=== PATIENT | male | born 1965 | race Caucasian/White ===

== ENCOUNTER 2016-10-03 01:16 | Inpatient (IN) | payer OTHER ==
[~2016-10-03] VITALS: Ht 180.3 cm; Wt 160.1 kg
[2016-10-03] VITALS (9 sets, daily range): BP systolic 141–214; BP diastolic 81–124
[2016-10-03] MEDS ORDERED: SILD50TA PO (04:45)
[2016-10-03] MEDS ORDERED: LORA10TA3 PO (04:45)
[2016-10-03] MEDS ORDERED: OXYM15MI4 NS (04:45)
[2016-10-03] MEDS ORDERED: BUDE10.22 IH (04:45)
[2016-10-03] MEDS ORDERED: VENL75TA PO (04:45)
[2016-10-03] MEDS ORDERED: NICO1PAT21 TD (04:45)
[2016-10-03] MEDS ORDERED: BUSP10TA PO (04:45)
[2016-10-03] MEDS ORDERED: ALLO100T PO (04:45)
[2016-10-03] MEDS ORDERED: NITR0.4T22 SL (04:45)
[2016-10-03] MEDS ORDERED: IPRA4AER IH (04:45)
[2016-10-03] MEDS ORDERED: LISI30TA4 PO (04:45)
[2016-10-03] MEDS ORDERED: ASPI-482 PO (04:45)
[2016-10-03] MEDS ORDERED: FLUT16SP NS (04:45)
[2016-10-03] MEDS ORDERED: CETI10TA16 PO (04:45)
[2016-10-03] MEDS ORDERED: METF500T4 PO (04:45)
[2016-10-03] MEDS ORDERED: OMEP40CA5 PO (04:45)
[2016-10-03 05:14] LABS: BASO # 0.1 x10^3/uL (0.0-0.2); BASO % 1 % (0-3); EOS % 3 % (0-3); HEMATOCRIT 48.8 % (39.0-53.0); HEMOGLOBIN 16.2 g/dL (13.0-17.5); LYMPH # 2.5 x10^3/uL (1.0-4.8); LYMPH % 23 % (24-48); MEAN CORPUSCULAR HEMOGLOBIN 31 pg (25-35); MEAN CORPUSCULAR HGB CONC 33 g/dL (31-37); MEAN CORPUSCULAR VOLUME 93 fL (79-100); MONO % 8 % (0-9); NEUT % 65 % (31-73); PLATELET COUNT 251 x10^3/uL (140-400); RED BLOOD COUNT 5.24 x10^6/uL (4.30-5.70); RED CELL DISTRIBUTION WIDTH 14.6 % (11.5-14.5); WHITE BLOOD COUNT 10.9 x10^3/uL (4.0-11.0)
[2016-10-03 05:33] LABS: ALBUMIN/GLOBULIN RATIO 0.8 (1.0-1.7); CALCIUM 9.4 mg/dL (8.5-10.1); CREATININE 1.1 mg/dL (0.7-1.3); MAGNESIUM 1.8 mg/dL (1.8-2.4); TOTAL BILIRUBIN 0.2 mg/dL (0.2-1.0); TOTAL PROTEIN 6.7 g/dL (6.4-8.2)
[2016-10-03 05:35] LABS: CHOLESTEROL/HDL RATIO 5.5
[2016-10-03] MEDS ORDERED: ANTI-COAG MONITOR BY PHARMACY. MC PRN (06:00)
[2016-10-03] MEDS: HEPARIN 25,000UTS/500ML PREMIX 500 ML IV PRN ×2 (06:09→22:15)
[2016-10-03] MEDS: HEPARIN for IV BOLUS 10,000 UNIT/10 ML VIAL. IV PRN ×3 (06:09→22:14)
--- NOTE | 2016-10-03 07:26 | EKG ---
[facility] [address] [place] [address] Test Date: 2016-10-03 Test Time: 07:17:12 Pat Name: STEVO GOODE Department: Room: 208 1 Gender: M [employer]er: : 1965 Requested By: MARIANNE VERONICA Order Number: [id number] Reading MD: Measurements Intervals [place] Rate: 82 P: 62 NM: 158 QRS: 70 QRSD: 100 T: 19 QT: 376 QTc: 442 Interpretive Statements SINUS RHYTHM ATRIAL PREMATURE COMPLEX(ES) OTHERWISE NORMAL ECG RI6.01 No previous ECG available for comparison
--- NOTE | 2016-10-03 07:53 | EKG ---
[facility] [address] [place] [address] Test Date: 2016-10-03 Test Time: 07:25:58 Pat Name: STEVO GOODE Department: Room: 208 1 Gender: M Hospital Manager: : [id number] Requested By: MARIANNE VERONICA Order Number: [id number] Reading MD: Measurements Intervals [place] Rate: 151 P: MS: QRS: 94 QRSD: 100 T: -56 QT: 322 QTc: 511 Interpretive Statements SUPRAVENTRICULAR TACHYCARDIA RIGHTWARD AXIS T ABNORMALITY IN ANTEROSEPTAL LEADS INFERIOR LEADS ABNORMAL ECG RI6.01 No previous ECG available for comparison
[2016-10-03] MEDS ORDERED: hydrALAZINE 20 MG/ML VIAL. IVP PRN (08:30)
[2016-10-03] MEDS: LISINOPRIL 40 MG TABLET. PO SCH (08:36)
[2016-10-03] MEDS ORDERED: ACETAMINOPHEN 325 MG TABLET. PO PRN (09:15)
[2016-10-03] MEDS ORDERED: MORPHINE SULFATE 2 MG/ML DISP.SYRIN. IV PRN (09:15)
[2016-10-03] MEDS ORDERED: ONDANSETRON PF 4 MG/2 ML VIAL. IV PRN (09:15)
[2016-10-03] MEDS ORDERED: DOCUSATE SODIUM 100 MG CAPSULE. PO PRN (09:15)
--- NOTE | 2016-10-03 09:44 | PDOC2 ---
CARDIAC CONSULT DATE OF CONSULT Date of Consult DATE: 10/03/16 TIME: 09:14 REASON FOR CONSULT Reason for Consult: SVT, elevation troponin REFERRING PHYSICIAN Referring Physician: Jesse SOURCE Source: Chart review, Patient HISTORY OF PRESENT ILLNESS HISTORY OF PRESENT ILLNESS This is a pleasant 51 yo male admitted for complains of dizziness. Pt was at the [facility] going up the escalator when he felt dizzy, SOA, diaphoretic, and was also having jaw pain which he also had the day before. The next thing he remembers was waking up while he was at the lower floor, feeling disoriented. Verbalized broken parts of the escalator. No sensation of palpitations at that time and no obvious traumatic injury. He was with his girlfriend at that time. No medical help or EMS attended. There was no bowel or stress incontinence or any symptoms of seizures. Positive for blurred vision and tinnitus but no CALLE, unilateral weakness, dysarthria, or facial droop noted prior to his fall. He then proceeded to home driven home by his girlfriend. He still was not feeling good at home and his girlfriend finally check his BP and SBP was in the 80s and told him that he will go to the hospital. He has been having some sensation of indigestion lately and could not really tell of any chest pain. Positive for VELA. He does use CPAP for KIRSTIE. He has HTN, HLP which he takes medications for . Positive for DM2. He had a C 09/2015 which showed luminal irregularities to his mid RCA otherwise normal coronaries. His EF at that time was normal as well as his wll motion. Denies any prior VTE, CVA, arrhythmia. PAST MEDICAL HISTORY Cardiovascular: HTN, Hyperlipidemia Pulmonary: COPD, Other (KIRSTIE with CPAP) CENTRAL NERVOUS SYSTEM: Periperal neuropathy GI: GERD Heme/Onc: No pertinent hx Hepatobiliary: No pertinent hx Psych: Anxiety Musculoskeletal: Osteoarthritis, Other (rencent right 5th finger injury from mechanical fall) Rheumatologic: Gout Infectious disease: No pertinent hx ENT: Allergic Rhinitis Renal/: No pertinent hx Endocrine: Diabetes (2) Dermatology: No pertinent hx PAST SURGICAL HISTORY Past Surgical History: Hernia Repair (umbilical ), Other ([facility] 09/2015) FAMILY HISTORY Family History: Coronary Artery Disease SOCIAL HISTORY Smoke: 2 packs per day (>30 yrs) ALCOHOL: occassional Drugs: Marijuana Lives: Friends (girlfriend) CURRENT MEDICATIONS CURRENT MEDICATIONS Current Medications Medications (Trade) Dose Ordered Sig/Darian Route PRN Reason Start Time Stop Time Status Last Admin Dose Admin Heparin Sodium/ Dextrose 500 ml @ 0 mls/hr CONT PRN IV SEE I/O RECORD 10/03/16 06:00 10/03/16 06:09 Heparin Sodium (Porcine) (Heparin Sodium) 4,100 unit PRN Q6HRS PRN IV FOR UFH LEVEL LESS THAN 0.2 10/03/16 06:00 10/03/16 06:09 Info (Anti-Coagulation Monitoring By Pharmacy) 1 each PRN DAILY PRN MC SEE COMMENTS 10/03/16 06:00 10/03/16 05:54 Hydralazine HCl (Apresoline) 10 mg PRN Q4HRS PRN IVP ELEVATED BP, SEE COMMENTS 10/03/16 08:30 10/03/16 08:37 Lisinopril (Prinivil) 40 mg DAILY PO 10/03/16 09:00 10/03/16 08:36 ALLERGIES ALLERGIES: Coded Allergies: Iodinated Contrast- Oral and IV Dye (Verified Allergy, Severe, 10/03/16) gabapentin (Verified Allergy, Intermediate, Swelling, 10/03/16) ROS Review of System 14 point ROS evaluated with pertinent positives noted per HPI PHYSICAL EXAM General: Alert, Oriented X3, Cooperative, No acute distress HEENT: Atraumatic, Mucous membr. moist/pink Lungs: Other (diminished bases) Heart: Regular rate (SR), Normal S1, Normal S2, Other (2/6 systolic murmur to LLS border) Abdomen: Soft, No tenderness, Other (truncal obesity) Extremities: No cyanosis, No edema Skin: No breakdown, No significant lesion Neuro: Normal speech, Sensation intact Psych/Mental Status: Mental status NL, Mood NL MUSCULOSKELETAL: Osteoarthritic changes both hands VITALS VITALS Vital Signs Date Time Temp Pulse Resp B/P (MAP) Pulse Ox O2 Delivery O2 Flow Rate FiO2 10/03/16 08:37 82 234/144 10/03/16 07:00 97.9 19 94 Nasal Cannula 3.0 97.9 LABS Lab: Laboratory Tests Test 10/03/16 05:00 10/03/16 09:03 White Blood Count 10.9 x10^3/uL (4.0-11.0) Red Blood Count 5.24 x10^6/uL (4.30-5.70) Hemoglobin 16.2 g/dL (13.0-17.5) Hematocrit 48.8 % (39.0-53.0) Mean Corpuscular Volume 93 fL (79-100) Mean Corpuscular Hemoglobin 31 pg (25-35) Mean Corpuscular Hemoglobin Concent 33 g/dL (31-37) Red Cell Distribution Width 14.6 % (11.5-14.5) Platelet Count 251 x10^3/uL (140-400) Neutrophils (%) (Auto) 65 % (31-73) Lymphocytes (%) (Auto) 23 % (24-48) Monocytes (%) (Auto) 8 % (0-9) Eosinophils (%) (Auto) 3 % (0-3) Basophils (%) (Auto) 1 % (0-3) Neutrophils # (Auto) 7.1 x10^3uL (1.8-7.7) Lymphocytes # (Auto) 2.5 x10^3/uL (1.0-4.8) Monocytes # (Auto) 0.9 x10^3/uL (0.0-1.1) Eosinophils # (Auto) 0.3 x10^3/uL (0.0-0.7) Basophils # (Auto) 0.1 x10^3/uL (0.0-0.2) Sodium Level 141 mmol/L (136-145) Potassium Level 4.0 mmol/L (3.5-5.1) Chloride Level 103 mmol/L (98-107) Carbon Dioxide Level 32 mmol/L (21-32) Anion Gap 6 (6-14) Blood Urea Nitrogen 13 mg/dL (8-26) Creatinine 1.1 mg/dL (0.7-1.3) Estimated GFR (Cockcroft-Gault) 70.0 BUN/Creatinine Ratio 12 (6-20) Glucose Level 119 mg/dL (70-99) Calcium Level 9.4 mg/dL (8.5-10.1) Magnesium Level 1.8 mg/dL (1.8-2.4) Total Bilirubin 0.2 mg/dL (0.2-1.0) Aspartate Amino Transf (AST/SGOT) 23 U/L (15-37) Alanine Aminotransferase (ALT/SGPT) 30 U/L (16-63) Alkaline Phosphatase 89 U/L (46-116) Troponin I Quantitative 2.284 ng/mL (0.000-0.055) Total Protein 6.7 g/dL (6.4-8.2) Albumin 3.0 g/dL (3.4-5.0) Albumin/Globulin Ratio 0.8 (1.0-1.7) Triglycerides Level 146 mg/dL (0-150) Cholesterol Level 148 mg/dL (0-200) LDL Cholesterol, Calculated 92 mg/dL (0-100) VLDL Cholesterol, Calculated 29 mg/dL (0-40) Non-HDL Cholesterol Calculated 121 mg/dL (0-129) HDL Cholesterol 27 mg/dL (40-60) Cholesterol/HDL Ratio 5.5 Glucose (Fingerstick) 121 mg/dL (70-99) ASSESSMENT/PLAN ASSESSMENT/PLAN 1. NSTEMI: typical features. Suspecting plaque rupture with associated arrhythmia. Currently no CP. 2. Accelerated HTN 3. Arrhythmia: SVT, junctional, SB 4. Syncope with fall: related to above 5. DM2/HLP 6. COPD/KIRSTIE 7. Morbid obesity: BMI 50 8. Heavy tobaccoism 9. IV contrast allergy: angioedema Recommendations 1. TTE 2. Contrast allergy prep, C tomorrow AM 3. Obtain home CPAP, smoking cessation 4. Heparin drip, ASA 5. Increase lisinopril, and start norvasc. Hydralazine IV PRN 6. No QT prolonging meds or AV nate blocking agent at this time. 7. TSH, lipid panel, CK 8. Check orthostatic readings 9. CT head Problems: EDWIN COWAN GRAIN OILSEED OR PASTURE GROWER Oct 03, 2016 09:44
[2016-10-03] MEDS: ALPRAZolam 0.25 MG TABLET PO PRN (09:51)
[2016-10-03] MEDS: amLODIPine BESYLATE 10 MG TABLET PO SCH (09:52)
[2016-10-03] MEDS ORDERED: SULFUR HEXAFLUORIDE MICROSPHR 25 MG VIAL. IVP ONE ×2 (10:27→11:00)
[2016-10-03] MEDS ORDERED: NITROGLYCERIN SUBLINGUAL 0.4 MG BOTTLE OF 25. SL PRN (10:45)
[2016-10-03] MEDS ORDERED: NON FORMULARY ITEM (Ipratropium/Albuterol Sulfate (Combivent Respimat Inhal) 2 INH) IH PRN (10:45)
[2016-10-03] MEDS ORDERED: NON FORMULARY ITEM (Loratadine 10 MG) PO PRN (10:45)
[2016-10-03] MEDS: PANTOPRAZOLE 40 MG TABLET.DR. PO SCH (11:51)
--- NOTE | 2016-10-03 11:51 | PDOC2 ---
CONSULT Date of Consult Date of Consult DATE: 10/03/16 TIME: 11:45 Reason for Consult Reason for Consult: COPD/KIRSTIE Referring Physician Referring Physician: Dr Ayala Identification/Chief Complaint Chief Complaint syncopy Problems: History of Present Illness Reason for Visit: Pt presented to [place] with syncopy, low BP, recent fall as well. 35 yrs of tobacco use. Has KIRSTIE, not using BIPAP recently due to not well fitted mask. Increase EDS. sleepy at times today. Past Medical History Cardiovascular: CHF, Syncope Pulmonary: COPD GI: No pertinent hx Heme/Onc: No pertinent hx Hepatobiliary: No pertinent hx Psych: No pertinent hx Rheumatologic: No pertinent hx Infectious disease: No pertinent hx Past Surgical History Past Surgical History: No pertinent history Family History Family History non contributry to lungs Social History # pack years (35) Current Medications Current Medications Current Medications Heparin Sodium/ Dextrose 500 ml @ 0 mls/hr CONT PRN IV SEE I/O RECORD Last administered on 10/03/16 06:09; Start 10/03/16 at 06:00 Heparin Sodium (Porcine) (Heparin Sodium) 4,100 unit PRN Q6HRS PRN IV FOR UFH LEVEL LESS THAN 0.2 Last administered on 10/03/16 06:09; Start 10/03/16 at 06: 00 Info (Anti-Coagulation Monitoring By Pharmacy) 1 each PRN DAILY PRN MC SEE COMMENTS Last administered on 10/03/16 05:54; Start 10/03/16 at 06:00 Hydralazine HCl (Apresoline) 10 mg PRN Q4HRS PRN IVP ELEVATED BP, SEE COMMENTS Last administered on 10/03/16 08:37; Start 10/03/16 at 08:30; Stop 10/03/16 at 09:18; Status DC Lisinopril (Prinivil) 40 mg DAILY PO Last administered on 10/03/16 08:36; Start 10/03/16 at 09:00 Acetaminophen (Tylenol) 650 mg PRN Q6HRS PRN PO FEVER; Start 10/03/16 at 09:15 Ondansetron HCl (Zofran) 4 mg PRN Q6HRS PRN IV NAUSEA/VOMITING; Start 10/03/16 at 09:15 Morphine Sulfate 2 mg PRN Q2HR PRN IV PAIN; Start 10/03/16 at 09:15 Tramadol HCl (Ultram) 50 mg PRN Q6HRS PRN PO PAIN; Start 10/03/16 at 09:15 Hydralazine HCl (Apresoline) 10 mg PRN Q4HRS PRN IVP ELEVATED BP, SEE COMMENTS ; Start 10/03/16 at 09:15 Docusate Sodium (Colace) 100 mg PRN DAILY PRN PO CONSTIPATION; Start 10/03/16 at 09:15 Alprazolam (Xanax) 0.25 mg PRN DAILY PRN PO ANXIETY / AGITATION Last administered on 10/03/16 09:51; Start 10/03/16 at 09:15 Amlodipine Besylate (Norvasc) 10 mg DAILY PO Last administered on 10/03/16 09: 52; Start 10/03/16 at 10:00 Sulfur Hexafluoride Microspheres (Lumason) 25 mg STK-MED ONCE IVP ; Start at 10:27; Stop 10/03/16 at 10:28; Status DC Allopurinol (Zyloprim) 100 mg DAILY PO ; Start 10/03/16 at 11:00 Aspirin (Ecotrin) 81 mg DAILY PO ; Start 10/03/16 at 11:00 Buspirone HCl (Buspar) 10 mg TID PO ; Start 10/03/16 at 14:00 Cetirizine HCl (ZyrTEC) 10 mg DAILY PO ; Start 10/03/16 at 11:00 Fluticasone Propionate (Flonase) 2 spray DAILY NS ; Start 10/04/16 at 09:00 Nicotine (Nicoderm Cq 21mg) 1 patch DAILY TD ; Start 10/04/16 at 09:00; Stop at 09:00; Status DC Nitroglycerin (Nitrostat) 0.4 mg PRN Q5MIN PRN SL CHEST PAIN; Start 10/03/16 at 10:45 Venlafaxine HCl (Effexor) 50 mg TID PO ; Start 10/03/16 at 11:00 Non-Formulary Medication 2 puff BID IH ; Start 10/03/16 at 21:00; Status UNV Non-Formulary Medication 2 inh PRN QID PRN IH SHORTNESS OF BREATH; Start at 10:45; Status UNV Non-Formulary Medication 10 mg PRN DAILY PRN PO ALLERGIES; Start 10/03/16 at 10 :45; Status UNV Pantoprazole Sodium (Protonix) 40 mg DAILYAC PO ; Start 10/03/16 at 11:00 Albuterol Sulfate (Ventolin Neb Soln) 2.5 mg PRN QID PRN NEB SHORTNESS OF BREATH; Start 10/03/16 at 11:00 Budesonide (Pulmicort) 0.5 mg RTBID NEB ; Start 10/03/16 at 20:00; Status UNV Budesonide (Pulmicort) 0.5 mg RTBID NEB ; Start 10/03/16 at 11:00 Albuterol Sulfate (Ventolin Neb Soln) 2.5 mg RTQID NEB ; Start 10/03/16 at 12:00 Sulfur Hexafluoride Microspheres (Lumason) 25 mg 1X ONCE IVP Last administered on 10/03/16t 10:55; Start 10/03/16 at 11:00; Stop 10/03/16 at 11:01 ; Status DC Nicotine (Nicoderm Cq 21mg) 1 patch DAILY TD ; Start 10/03/16 at 11:45 Active Scripts Active Reported Aspir 81 (Aspirin) 81 Mg Tablet.dr 1 Tab PO DAILY Afrin (Oxymetazoline Hcl) 15 Ml Mist 15 Ml NS PRN Q6HRS PRN NITROGLYCERIN SubLingual (Nitroglycerin) 0.4 Mg Tab.subl 0.4 Mg SL PRN Q5MIN PRN Lisinopril 30 Mg Tablet 30 Mg PO DAILY Buspirone Hcl 10 Mg Tablet 10 Mg PO TID Venlafaxine Hcl 75 Mg Tablet 150 Mg PO DAILY Viagra (Sildenafil Citrate) 50 Mg Tablet 1 Tab PO UD Omeprazole 40 Mg Capsule.dr 40 Mg PO DAILY NICODERM CQ 21mg (Nicotine) 1 Each Patch.td24 1 Patch TD DAILY Metformin Hcl 500 Mg Tablet 500 Mg PO BIDWMEALS Loratadine 10 Mg Tablet 10 Mg PO PRN DAILY PRN Fluticasone Propionate Nasal Supply (Fluticasone Propionate) 16 Gm Supply.susp 2 Supply NS DAILY Cetirizine Hcl 10 Mg Tablet 1 Tab PO DAILY Symbicort 80-4.5 Mcg Inhaler (Budesonide/Formoterol Fumarate) 10.2 Gm Hfa.aer.ad 2 Puff IH BID Allopurinol 100 Mg Tablet 100 Mg PO DAILY Combivent Respimat Inhal (Ipratropium/Albuterol Sulfate) 4 Gm Aer.w.adap 2 Inh IH PRN QID PRN Allergies Allergies: Coded Allergies: Iodinated Contrast- Oral and IV Dye (Verified Allergy, Severe, 10/03/16) gabapentin (Verified Allergy, Intermediate, Swelling, 10/03/16) ROS Review of System as discussed in h/o present illness Vitals VITALS Vital Signs Date Time Temp Pulse Resp B/P (MAP) Pulse Ox O2 Delivery O2 Flow Rate FiO2 10/03/16 09:52 83 183/114 10/03/16 08:00 Nasal Cannula 3.0 10/03/16 07:00 97.9 19 94 97.9 Labs Labs Laboratory Tests Test 10/03/16 05:00 10/03/16 09:03 10/03/16 11:00 White Blood Count 10.9 x10^3/uL (4.0-11.0) Red Blood Count 5.24 x10^6/uL (4.30-5.70) Hemoglobin 16.2 g/dL (13.0-17.5) Hematocrit 48.8 % (39.0-53.0) Mean Corpuscular Volume 93 fL (79-100) Mean Corpuscular Hemoglobin 31 pg (25-35) Mean Corpuscular Hemoglobin Concent 33 g/dL (31-37) Red Cell Distribution Width 14.6 % (11.5-14.5) Platelet Count 251 x10^3/uL (140-400) Neutrophils (%) (Auto) 65 % (31-73) Lymphocytes (%) (Auto) 23 % (24-48) Monocytes (%) (Auto) 8 % (0-9) Eosinophils (%) (Auto) 3 % (0-3) Basophils (%) (Auto) 1 % (0-3) Neutrophils # (Auto) 7.1 x10^3uL (1.8-7.7) Lymphocytes # (Auto) 2.5 x10^3/uL (1.0-4.8) Monocytes # (Auto) 0.9 x10^3/uL (0.0-1.1) Eosinophils # (Auto) 0.3 x10^3/uL (0.0-0.7) Basophils # (Auto) 0.1 x10^3/uL (0.0-0.2) Sodium Level 141 mmol/L (136-145) Potassium Level 4.0 mmol/L (3.5-5.1) Chloride Level 103 mmol/L (98-107) Carbon Dioxide Level 32 mmol/L (21-32) Anion Gap 6 (6-14) Blood Urea Nitrogen 13 mg/dL (8-26) Creatinine 1.1 mg/dL (0.7-1.3) Estimated GFR (Cockcroft-Gault) 70.0 BUN/Creatinine Ratio 12 (6-20) Glucose Level 119 mg/dL (70-99) Calcium Level 9.4 mg/dL (8.5-10.1) Magnesium Level 1.8 mg/dL (1.8-2.4) Total Bilirubin 0.2 mg/dL (0.2-1.0) Aspartate Amino Transf (AST/SGOT) 23 U/L (15-37) Alanine Aminotransferase (ALT/SGPT) 30 U/L (16-63) Alkaline Phosphatase 89 U/L (46-116) Troponin I Quantitative 2.284 ng/mL (0.000-0.055) 1.926 ng/mL (0.000-0.055) Total Protein 6.7 g/dL (6.4-8.2) Albumin 3.0 g/dL (3.4-5.0) Albumin/Globulin Ratio 0.8 (1.0-1.7) Triglycerides Level 146 mg/dL (0-150) Cholesterol Level 148 mg/dL (0-200) LDL Cholesterol, Calculated 92 mg/dL (0-100) VLDL Cholesterol, Calculated 29 mg/dL (0-40) Non-HDL Cholesterol Calculated 121 mg/dL (0-129) HDL Cholesterol 27 mg/dL (40-60) Cholesterol/HDL Ratio 5.5 Thyroid Stimulating Hormone (TSH) 1.216 uIU/mL (0.358-3.74) Glucose (Fingerstick) 121 mg/dL (70-99) Laboratory Tests Test 10/03/16 05:00 10/03/16 09:03 10/03/16 11:00 White Blood Count 10.9 x10^3/uL (4.0-11.0) Red Blood Count 5.24 x10^6/uL (4.30-5.70) Hemoglobin 16.2 g/dL (13.0-17.5) Hematocrit 48.8 % (39.0-53.0) Mean Corpuscular Volume 93 fL (79-100) Mean Corpuscular Hemoglobin 31 pg (25-35) Mean Corpuscular Hemoglobin Concent 33 g/dL (31-37) Red Cell Distribution Width 14.6 % (11.5-14.5) Platelet Count 251 x10^3/uL (140-400) Neutrophils (%) (Auto) 65 % (31-73) Lymphocytes (%) (Auto) 23 % (24-48) Monocytes (%) (Auto) 8 % (0-9) Eosinophils (%) (Auto) 3 % (0-3) Basophils (%) (Auto) 1 % (0-3) Neutrophils # (Auto) 7.1 x10^3uL (1.8-7.7) Lymphocytes # (Auto) 2.5 x10^3/uL (1.0-4.8) Monocytes # (Auto) 0.9 x10^3/uL (0.0-1.1) Eosinophils # (Auto) 0.3 x10^3/uL (0.0-0.7) Basophils # (Auto) 0.1 x10^3/uL (0.0-0.2) Sodium Level 141 mmol/L (136-145) Potassium Level 4.0 mmol/L (3.5-5.1) Chloride Level 103 mmol/L (98-107) Carbon Dioxide Level 32 mmol/L (21-32) Anion Gap 6 (6-14) Blood Urea Nitrogen 13 mg/dL (8-26) Creatinine 1.1 mg/dL (0.7-1.3) Estimated GFR (Cockcroft-Gault) 70.0 BUN/Creatinine Ratio 12 (6-20) Glucose Level 119 mg/dL (70-99) Calcium Level 9.4 mg/dL (8.5-10.1) Magnesium Level 1.8 mg/dL (1.8-2.4) Total Bilirubin 0.2 mg/dL (0.2-1.0) Aspartate Amino Transf (AST/SGOT) 23 U/L (15-37) Alanine Aminotransferase (ALT/SGPT) 30 U/L (16-63) Alkaline Phosphatase 89 U/L (46-116) Troponin I Quantitative 2.284 ng/mL (0.000-0.055) 1.926 ng/mL (0.000-0.055) Total Protein 6.7 g/dL (6.4-8.2) Albumin 3.0 g/dL (3.4-5.0) Albumin/Globulin Ratio 0.8 (1.0-1.7) Triglycerides Level 146 mg/dL (0-150) Cholesterol Level 148 mg/dL (0-200) LDL Cholesterol, Calculated 92 mg/dL (0-100) VLDL Cholesterol, Calculated 29 mg/dL (0-40) Non-HDL Cholesterol Calculated 121 mg/dL (0-129) HDL Cholesterol 27 mg/dL (40-60) Cholesterol/HDL Ratio 5.5 Thyroid Stimulating Hormone (TSH) 1.216 uIU/mL (0.358-3.74) Glucose (Fingerstick) 121 mg/dL (70-99) Assessment/Plan Assessment/Plan NSTEMI: suspected hypercapnia, will get ABG Accelerated HTN Arrhythmia: SVT, junctional, SB Syncope DM2/HLP KIRSTIE Morbid obesity Heavy tobaccoism IV contrast allergy: angioedema Recommendations 1. TTE per cardiology 2. Contrast allergy prep, LHC tomorrow AM 3. Obtain home BIPAP, till then use our BIPAP 4. Heparin drip, ASA 5. BP f/u per cardiology 6. Obtain [place] cardiac records and LHC 1 yr ago, unknown result but no PCI. 7. ABG d/w YAKOV TORRES MD Oct 03, 2016 11:51
[2016-10-03] MEDS: NICOTINE 21MG PATCH. TD SCH (11:52)
[2016-10-03] MEDS: CETIRIZINE HCL 10 MG TABLET. PO SCH (11:52)
[2016-10-03] MEDS: ALLOPURINOL 100 MG TABLET. PO SCH (11:52)
[2016-10-03] MEDS: VENLAFAXINE 50 MG TABLET. PO SCH ×3 (11:52→21:46)
[2016-10-03] MEDS: ASPIRIN ENTERIC COATED 81 MG TABLET.DR. PO SCH (11:52)
[2016-10-03] MEDS: INSULIN ASPART 300 UNITS/3 ML INSULN.PEN SQ SCH ×2 (12:00→17:00)
[2016-10-03] MEDS ORDERED: ALBUTEROL SULFATE 2.5 MG/3 ML NEBU. NEB SCH (12:00)
[2016-10-03] MEDS ORDERED: DEXTROSE 50% 25 GM / 50ML DISP.SYRIN. IV PRN (12:00)
[2016-10-03] MEDS: BUDESONIDE 0.5 MG/2 ML NEBU. NEB SCH ×2 (12:12→19:16)
[2016-10-03 12:30] LABS: HCO3 ABG 27 mmol/L (21-28); PCO2 ABG 46 mmHg (35-46); PH ABG 7.39 (7.35-7.45); PO2 ABG 66 mmHg (75-108); SAT O2 ABG 92 % (92-99)
--- NOTE | 2016-10-03 13:02 | RAD ---
CT of the head without contrast, 10/03/2016: History: Syncope The ventricles are within normal limits in size. There is no shift of the midline structures. There is no evidence of acute intracranial hemorrhage or mass effect. There is a small amount of the debris in the left sphenoid sinus, presumably on an inflammatory basis. IMPRESSION: No acute intracranial abnormality is detected. PQRS Compliance Statement: One or more of the following individualized dose reduction techniques were utilized for this examination: 1. Automated exposure control 2. Adjustment of the mA and/or kV according to patient size 3. Use of iterative reconstruction technique
[2016-10-03] MEDS: hydrALAZINE 20 MG/ML VIAL. IVP PRN (13:08)
--- NOTE | 2016-10-03 13:08 | PDOC1 ---
History and Physical Date of Admission Date of Admission 10/03/16 Identification/Chief Complaint Chief Complaint syncope Problems: Source Source: Chart review, Patient History of Present Illness History of Present Illness 51yo M, with copd, smoking, htn, dm2, was sent from [place] for syncope. pt is a poor historian. He said he has not been using his CPAP with mask problem , and kept falling sleep and yawning when i talked to him. He said he was with his gf yesterday, standing on a escalator then felt lightheaded and syncoped, but pt could not really tell how it happened, denies chest pain, sob. He syncoped for 1 sec, and then woke up , felt ok, then left. But he was worrying about his glucose, so they went to a restaurant for meal, his gf checked his glucose was 129, but BP was 80s then went to [place]. in [place], was found SVT, elevated troponin and then sent here. overnight, his HR fluctuated to 120s and 40s when he slept, and troponin is >2. denies heart problem, very anxious Past Medical History Cardiovascular: CHF, Syncope Pulmonary: COPD GI: No pertinent hx Heme/Onc: No pertinent hx Hepatobiliary: No pertinent hx Psych: No pertinent hx Rheumatologic: No pertinent hx Infectious disease: No pertinent hx Past Surgical History Past Surgical History: Hernia Repair Family History Family History: Heart Disease Social History Smoke: # pack years (35) ALCOHOL: social Drugs: None Current Medications Current Medications Current Medications Medications (Trade) Dose Ordered Sig/Darian Start Time Stop Time Status Last Admin Dose Admin Acetaminophen (Tylenol) 650 mg PRN Q6HRS PRN 10/03/16 09:15 Albuterol Sulfate (Ventolin Neb Soln) 2.5 mg RTQID 10/03/16 12:00 10/03/16 12:12 2.5 MG Allopurinol (Zyloprim) 100 mg DAILY 10/03/16 11:00 10/03/16 11:52 100 MG Alprazolam (Xanax) 0.25 mg PRN DAILY PRN 10/03/16 09:15 10/03/16 09:51 0.25 MG Amlodipine Besylate (Norvasc) 10 mg DAILY 10/03/16 10:00 10/03/16 09:52 10 MG Aspirin (Ecotrin) 81 mg DAILY 10/03/16 11:00 10/03/16 11:52 81 MG Budesonide (Pulmicort) 0.5 mg RTBID 10/03/16 11:00 10/03/16 12:12 0.5 MG Buspirone HCl (Buspar) 10 mg TID 10/03/16 14:00 Cetirizine HCl (ZyrTEC) 10 mg DAILY 10/03/16 11:00 10/03/16 11:52 10 MG Dextrose (Dextrose 50%-Water Syringe) 12.5 gm PRN Q15MIN PRN 10/03/16 12:00 Diphenhydramine HCl (Benadryl) 50 mg 1X ONCE 10/04/16 07:00 10/04/16 07:01 UNV Docusate Sodium (Colace) 100 mg PRN DAILY PRN 10/03/16 09:15 Famotidine (Pepcid) 40 mg 1X ONCE 10/04/16 07:00 10/04/16 07:01 UNV Fluticasone Propionate (Flonase) 2 spray DAILY 10/04/16 09:00 Heparin Sodium (Porcine) (Heparin Sodium) 4,100 unit PRN Q6HRS PRN 10/03/16 06:00 10/03/16 06:09 4,100 UNIT Heparin Sodium/ Dextrose 500 ml @ 0 mls/hr CONT PRN 10/03/16 06:00 10/03/16 06:09 20 MLS/HR Hydralazine HCl (Apresoline) 10 mg PRN Q4HRS PRN 10/03/16 09:15 Info (Anti-Coagulation Monitoring By Pharmacy) 1 each PRN DAILY PRN 10/03/16 06:00 10/03/16 05:54 1 EACH Insulin Aspart (NovoLOG) 0-9 UNITS TIDWMEALS 10/03/16 12:00 Lisinopril (Prinivil) 40 mg DAILY 10/03/16 09:00 10/03/16 08:36 40 MG Morphine Sulfate 2 mg PRN Q2HR PRN 10/03/16 09:15 Nicotine (Nicoderm Cq 21mg) 1 patch DAILY 10/03/16 11:45 10/03/16 11:52 1 PATCH Nitroglycerin (Nitrostat) 0.4 mg PRN Q5MIN PRN 10/03/16 10:45 Non-Formulary Medication 10 mg PRN DAILY PRN 10/03/16 10:45 UNV Ondansetron HCl (Zofran) 4 mg PRN Q6HRS PRN 10/03/16 09:15 Pantoprazole Sodium (Protonix) 40 mg DAILYAC 10/03/16 11:00 10/03/16 11:51 40 MG Prednisone (Prednisone) 50 mg Q6HRS 10/03/16 18:00 10/04/16 08:00 UNV Sulfur Hexafluoride Microspheres (Lumason) 25 mg 1X ONCE 10/03/16 11:00 10/03/16 11:01 DC 10/03/16 10:55 25 MG Tramadol HCl (Ultram) 50 mg PRN Q6HRS PRN 10/03/16 09:15 Venlafaxine HCl (Effexor) 50 mg TID 10/03/16 11:00 10/03/16 11:52 50 MG Allergies Allergies Allergies Coded Allergies Type Severity Reaction Last Updated Verified Iodinated Contrast- Oral and IV Dye Allergy Severe 10/03/16 Yes gabapentin Allergy Intermediate Swelling 10/03/16 Yes ROS Review of System CONSTITUTIONAL: No fever or chills EYES: No recent changes SKIN: No rash or itching CARDIOVASCULAR: No chest pain, syncope, palpitations, or edema RESPIRATORY: No SOB or cough GASTROINTESTINAL: No nausea, vomiting or abdominal pain NEUROLOGICAL: No headaches or weakness ENDOCRINE: No cold or heat intolerance GENITOURINARY: No urgency or frequency of urination MUSCULOSKELETAL: No back pain or joint pain LYMPHATICS: No enlarged lymph nodes PSYCHIATRIC: No anxiety or depression Physical Exam Physical Exam GEN.: No apparent distress. Alert and oriented. yawning all the time HEENT: Head is normocephalic, atraumatic NECK: Supple. LUNGS: Clear to auscultation. HEART: RRR, S1, S2 present. Peripheral pulses intact ABDOMEN: Soft, nontender. Positive bowel sounds. EXTREMITIES: Without any cyanosis. NEUROLOGIC: Normal speech, normal tone PSYCHIATRIC: Normal affect, normal mood. SKIN: No ulcerations Vitals Vitals Vital Signs Date Time Temp Pulse Resp B/P (MAP) Pulse Ox O2 Delivery O2 Flow Rate FiO2 10/03/16 12:13 99 Nasal Cannula 2.0 10/03/16 12:00 99 181/113 (135) 10/03/16 11:00 97.6 18 97.6 Labs Labs Laboratory Tests Test 10/03/16 05:00 10/03/16 09:03 10/03/16 11:00 10/03/16 11:57 White Blood Count 10.9 x10^3/uL (4.0-11.0) Red Blood Count 5.24 x10^6/uL (4.30-5.70) Hemoglobin 16.2 g/dL (13.0-17.5) Hematocrit 48.8 % (39.0-53.0) Mean Corpuscular Volume 93 fL (79-100) Mean Corpuscular Hemoglobin 31 pg (25-35) Mean Corpuscular Hemoglobin Concent 33 g/dL (31-37) Red Cell Distribution Width 14.6 % (11.5-14.5) Platelet Count 251 x10^3/uL (140-400) Neutrophils (%) (Auto) 65 % (31-73) Lymphocytes (%) (Auto) 23 % (24-48) Monocytes (%) (Auto) 8 % (0-9) Eosinophils (%) (Auto) 3 % (0-3) Basophils (%) (Auto) 1 % (0-3) Neutrophils # (Auto) 7.1 x10^3uL (1.8-7.7) Lymphocytes # (Auto) 2.5 x10^3/uL (1.0-4.8) Monocytes # (Auto) 0.9 x10^3/uL (0.0-1.1) Eosinophils # (Auto) 0.3 x10^3/uL (0.0-0.7) Basophils # (Auto) 0.1 x10^3/uL (0.0-0.2) Sodium Level 141 mmol/L (136-145) Potassium Level 4.0 mmol/L (3.5-5.1) Chloride Level 103 mmol/L (98-107) Carbon Dioxide Level 32 mmol/L (21-32) Anion Gap 6 (6-14) Blood Urea Nitrogen 13 mg/dL (8-26) Creatinine 1.1 mg/dL (0.7-1.3) Estimated GFR (Cockcroft-Gault) 70.0 BUN/Creatinine Ratio 12 (6-20) Glucose Level 119 mg/dL (70-99) Calcium Level 9.4 mg/dL (8.5-10.1) Magnesium Level 1.8 mg/dL (1.8-2.4) Total Bilirubin 0.2 mg/dL (0.2-1.0) Aspartate Amino Transf (AST/SGOT) 23 U/L (15-37) Alanine Aminotransferase (ALT/SGPT) 30 U/L (16-63) Alkaline Phosphatase 89 U/L (46-116) Troponin I Quantitative 2.284 ng/mL (0.000-0.055) 1.926 ng/mL (0.000-0.055) Total Protein 6.7 g/dL (6.4-8.2) Albumin 3.0 g/dL (3.4-5.0) Albumin/Globulin Ratio 0.8 (1.0-1.7) Triglycerides Level 146 mg/dL (0-150) Cholesterol Level 148 mg/dL (0-200) LDL Cholesterol, Calculated 92 mg/dL (0-100) VLDL Cholesterol, Calculated 29 mg/dL (0-40) Non-HDL Cholesterol Calculated 121 mg/dL (0-129) HDL Cholesterol 27 mg/dL (40-60) Cholesterol/HDL Ratio 5.5 Thyroid Stimulating Hormone (TSH) 1.216 uIU/mL (0.358-3.74) Glucose (Fingerstick) 121 mg/dL (70-99) 142 mg/dL (70-99) Test 10/03/16 12:00 10/03/16 12:20 Heparin Anti-Xa Act, Unfractionated 0.10 IU/mL (0.30-0.70) O2 Saturation 92 % (92-99) Arterial Blood pH 7.39 (7.35-7.45) Arterial Blood pCO2 at Patient Temp 46 mmHg (35-46) Arterial Blood pO2 at Patient Temp 66 mmHg (75-108) Arterial Blood HCO3 27 mmol/L (21-28) Arterial Blood Base Excess 2 mmol/L (-3-3) FiO2 28.0 Laboratory Tests Test 10/03/16 05:00 10/03/16 09:03 10/03/16 11:00 10/03/16 11:57 White Blood Count 10.9 x10^3/uL (4.0-11.0) Red Blood Count 5.24 x10^6/uL (4.30-5.70) Hemoglobin 16.2 g/dL (13.0-17.5) Hematocrit 48.8 % (39.0-53.0) Mean Corpuscular Volume 93 fL (79-100) Mean Corpuscular Hemoglobin 31 pg (25-35) Mean Corpuscular Hemoglobin Concent 33 g/dL (31-37) Red Cell Distribution Width 14.6 % (11.5-14.5) Platelet Count 251 x10^3/uL (140-400) Neutrophils (%) (Auto) 65 % (31-73) Lymphocytes (%) (Auto) 23 % (24-48) Monocytes (%) (Auto) 8 % (0-9) Eosinophils (%) (Auto) 3 % (0-3) Basophils (%) (Auto) 1 % (0-3) Neutrophils # (Auto) 7.1 x10^3uL (1.8-7.7) Lymphocytes # (Auto) 2.5 x10^3/uL (1.0-4.8) Monocytes # (Auto) 0.9 x10^3/uL (0.0-1.1) Eosinophils # (Auto) 0.3 x10^3/uL (0.0-0.7) Basophils # (Auto) 0.1 x10^3/uL (0.0-0.2) Sodium Level 141 mmol/L (136-145) Potassium Level 4.0 mmol/L (3.5-5.1) Chloride Level 103 mmol/L (98-107) Carbon Dioxide Level 32 mmol/L (21-32) Anion Gap 6 (6-14) Blood Urea Nitrogen 13 mg/dL (8-26) Creatinine 1.1 mg/dL (0.7-1.3) Estimated GFR (Cockcroft-Gault) 70.0 BUN/Creatinine Ratio 12 (6-20) Glucose Level 119 mg/dL (70-99) Calcium Level 9.4 mg/dL (8.5-10.1) Magnesium Level 1.8 mg/dL (1.8-2.4) Total Bilirubin 0.2 mg/dL (0.2-1.0) Aspartate Amino Transf (AST/SGOT) 23 U/L (15-37) Alanine Aminotransferase (ALT/SGPT) 30 U/L (16-63) Alkaline Phosphatase 89 U/L (46-116) Troponin I Quantitative 2.284 ng/mL (0.000-0.055) 1.926 ng/mL (0.000-0.055) Total Protein 6.7 g/dL (6.4-8.2) Albumin 3.0 g/dL (3.4-5.0) Albumin/Globulin Ratio 0.8 (1.0-1.7) Triglycerides Level 146 mg/dL (0-150) Cholesterol Level 148 mg/dL (0-200) LDL Cholesterol, Calculated 92 mg/dL (0-100) VLDL Cholesterol, Calculated 29 mg/dL (0-40) Non-HDL Cholesterol Calculated 121 mg/dL (0-129) HDL Cholesterol 27 mg/dL (40-60) Cholesterol/HDL Ratio 5.5 Thyroid Stimulating Hormone (TSH) 1.216 uIU/mL (0.358-3.74) Glucose (Fingerstick) 121 mg/dL (70-99) 142 mg/dL (70-99) Test 10/03/16 12:00 10/03/16 12:20 Heparin Anti-Xa Act, Unfractionated 0.10 IU/mL (0.30-0.70) O2 Saturation 92 % (92-99) Arterial Blood pH 7.39 (7.35-7.45) Arterial Blood pCO2 at Patient Temp 46 mmHg (35-46) Arterial Blood pO2 at Patient Temp 66 mmHg (75-108) Arterial Blood HCO3 27 mmol/L (21-28) Arterial Blood Base Excess 2 mmol/L (-3-3) FiO2 28.0 VTE Prophylaxis Ordered VTE Prophylaxis Devices: Yes VTE Pharmacological Prophylaxi: No Assessment/Plan Assessment/Plan syncope, possible 2/2 arrythmia Arrythmia, need to rule out sick sinus syndrome NSTMEI with elevated troponin but no chest pain KIRSTIE copd tobaccoism morbid obesity htn dm2 anxiety plan: pulm, card consult TTE, MAY need PPM? Cont CPAP, albuterol prn on heparin drip, need cath, but allergic to cath contrast before, prednisone prep today as per sx cont home meds, but hold veagra Hold metformin, add ssi xanax prn admit >2 nights PATRICIA WINTERS MD Oct 03, 2016 13:08
[2016-10-03] MEDS: busPIRone 10 MG TABLET. PO SCH ×2 (13:33→21:50)
[2016-10-03] MEDS: FAMOTIDINE 20 MG TABLET. PO SCH ×2 (13:33→21:47)
[2016-10-03] MEDS ORDERED: CYAN100031 PO (13:36)
[2016-10-03] MEDS ORDERED: LABETALOL 20 MG/4 ML DISP.SYRIN. IVP ONE (16:00)
[2016-10-03] MEDS ORDERED: LABETALOL 20 MG/4 ML DISP.SYRIN. IVP PRN (16:30)
[2016-10-03] MEDS: predniSONE 10 MG TABLET PO SCH ×2 (18:16→23:55)
[2016-10-03] MEDS ORDERED: METOPROLOL TARTRATE 5 MG/5 ML VIAL. IVP ONE (19:45)
[2016-10-03] MEDS ORDERED: BUDESONIDE 0.5 MG/2 ML NEBU. NEB SCH (20:00)
[2016-10-03] MEDS ORDERED: NON FORMULARY ITEM (Budesonide/Formoterol Fumarate (Symbicort 80-4.5 Mcg Inhaler) 2 PUFF) IH SCH (21:00)
[2016-10-03] MEDS: ATORVASTATIN CALCIUM 20 MG TABLET PO SCH (21:47)
[2016-10-03] MEDS: traMADol 50 MG TABLET PO PRN (21:58)
[2016-10-04] VITALS (15 sets, daily range): BP systolic 118–219; BP diastolic 47–127
[2016-10-04] MEDS: METOPROLOL TARTRATE 5 MG/5 ML VIAL. IVP SCH ×3 (00:01→12:08)
--- NOTE | 2016-10-04 02:07 | ACF ---
Admission Forms Criteria SYNCOPE Clinical Indications for Admission to Inpatient Care ( Place 'X' for any and all applicable criteria): Admission is indicated for syncope and ANY ONE of the following (1)(2)(3)(4)(5) (6)(7) : [X]I. Inpatient admission required rather than observation care (Also use Syncope: Observation Care Criteria as appropriate) because of ANY ONE of the following: [ ]a) Hemodynamic instability that is severe or persistent [ ]b) Cardiac arrhythmias of immediate concern identified or strongly suspected (eg, needs electrophysiologic study) [ ]c) Acute coronary syndrome identified (Also use Myocardial Infarction or Angina Criteria form ) [ ]d) Structural cardiac disorder (eg, aortic stenosis) suspected as cause that requires immediate correction [ ]e) Respiratory symptoms (eg, dyspnea, tachypnea) that are severe or persistent [ ]f) Neurologic signs or symptoms that are severe or persistent ( eg, stroke, seizures, altered mental status) [ ]g) Severe electrolyte abnormalities requiring inpatient care [X]h) Supplemental oxygen or respiratory treatment for over 24 hrs that are performable only in acute inpatient setting [ ]i) IV fluid to replace significant ongoing (eg, for over 24 hrs ) losses (>3 L/m2 per day) [ ]j) Continuous intravenous infusion of anticoagulation, platelet inhibitor, vasoactive, or antiarrhythmic medication(15)(16) [ ]k) Pulmonary artery catheter monitoring [ ]l) Temporary pacemaker placement(17) [ ]m) Emergent cardioversion(18) [ ]n) Other conditions, treatment or monitoring requiring inpatient admission [ ]II. Suspicion of imminently dangerous cause (eg, rare causes like pericardial tamponade, pulmonary embolism) [ ]III. Syncope causing severe injury requiring hospitalization Extended stay beyond goal length of stay may be needed for(28) [ ]a) Dangerous arrhythmia(15)(23)(27)(29) [ ]b) Myocardial ischemia [ ]c) Seizure disorder [ ]d) Syncope-related injuries The original [facility] content created by [employer] has been revised. The portions of the content which have been revised are identified through the use of italic text or in bold, and [employer] has neither reviewed nor approved the modified material. All other unmodified content is copyright [employer]. Please see references footnoted in the original [facility] edition 2016 Admission Criteria Met?: Yes ALPESH FRANCO Oct 04, 2016 02:07
[2016-10-04] MEDS: hydrALAZINE 20 MG/ML VIAL. IVP PRN (03:51)
[2016-10-04 04:14] LABS: BASO % 0 % (0-3); EOS % 0 % (0-3); HEMATOCRIT 49.8 % (39.0-53.0); HEMOGLOBIN 16.3 g/dL (13.0-17.5); LYMPH # 0.4 x10^3/uL (1.0-4.8); LYMPH % 5 % (24-48); MEAN CORPUSCULAR HEMOGLOBIN 31 pg (25-35); MEAN CORPUSCULAR HGB CONC 33 g/dL (31-37); MEAN CORPUSCULAR VOLUME 94 fL (79-100); MONO % 2 % (0-9); NEUT % 93 % (31-73); PLATELET COUNT 269 x10^3/uL (140-400); RED BLOOD COUNT 5.31 x10^6/uL (4.30-5.70); RED CELL DISTRIBUTION WIDTH 14.8 % (11.5-14.5); WHITE BLOOD COUNT 8.9 x10^3/uL (4.0-11.0)
[2016-10-04 04:26] LABS: CALCIUM 9.5 mg/dL (8.5-10.1); CREATININE 0.9 mg/dL (0.7-1.3); GFR 88.3; POTASSIUM 4.9 mmol/L (3.5-5.1)
[2016-10-04] MEDS: HEPARIN for IV BOLUS 10,000 UNIT/10 ML VIAL. IV PRN (05:00)
[2016-10-04] MEDS: predniSONE 10 MG TABLET PO SCH (06:37)
[2016-10-04] MEDS ORDERED: FAMOTIDINE 20 MG TABLET. PO ONE (07:00)
[2016-10-04] MEDS ORDERED: diphenhydrAMINE HCL 25 MG CAPSULE PO ONE (07:00)
[2016-10-04] MEDS: ALBUTEROL SULFATE 2.5 MG/3 ML NEBU. NEB PRN ×2 (07:59→19:10)
[2016-10-04] MEDS: INSULIN ASPART 300 UNITS/3 ML INSULN.PEN SQ SCH ×3 (08:00→17:24)
[2016-10-04] MEDS: BUDESONIDE 0.5 MG/2 ML NEBU. NEB SCH ×2 (08:00→19:10)
[2016-10-04 08:02] LABS: PLT ESTIMATE ADEQUATE (ADEQUATE)
[2016-10-04] MEDS ORDERED: LIDOCAINE 2% 20 ML VIAL. ONE (08:43)
[2016-10-04] MEDS ORDERED: IOHEXOL 350 MG/ML 100 ML VIAL. ONE ×2 (08:43→10:37)
[2016-10-04] MEDS ORDERED: NICOTINE 21MG PATCH. TD SCH (09:00)
[2016-10-04] MEDS ORDERED: methylPREDNISolone SOD SUCC PF 125 MG/2 ML VIAL. ONE (09:27)
[2016-10-04] MEDS ORDERED: MIDAZOLAM HCL/PF 2 MG/2 ML VIAL. IV ONE (09:30)
[2016-10-04] MEDS ORDERED: IOHEXOL 300 MG/ML 100ML VIAL. IART ONE (09:30)
[2016-10-04] MEDS ORDERED: fentaNYL PF VIAL 100 MCG/2 ML VIAL IV ONE (09:30)
[2016-10-04] MEDS ORDERED: LIDOCAINE 2% 20 ML VIAL. IJ ONE (09:30)
[2016-10-04] MEDS ORDERED: CONTRAST GIVEN MC PRN (09:30)
[2016-10-04] MEDS: ASPIRIN ENTERIC COATED 81 MG TABLET.DR. PO SCH (09:36)
[2016-10-04] MEDS ORDERED: methylPREDNISolone SOD SUCC PF 125 MG/2 ML VIAL. IV ONE (09:45)
[2016-10-04] MEDS ORDERED: MIDAZOLAM HCL/PF 2 MG/2 ML VIAL. ONE (10:16)
[2016-10-04] MEDS ORDERED: BIVALIRUDIN 250 MG VIAL. IV ONE ×2 (10:37→11:00)
[2016-10-04] MEDS ORDERED: ASPIRIN 325 MG TABLET PO ONE (11:00)
[2016-10-04] MEDS ORDERED: IV NORMAL SALINE 1000ML BAG 1,000 ML IV SCH (11:01)
[2016-10-04] MEDS ORDERED: 0.9 % SODIUM CHLORIDE 10 ML DISP.SYRIN. IV PRN (11:15)
[2016-10-04] MEDS ORDERED: NITROGLYCERIN SUBLINGUAL 0.4 MG BOTTLE OF 25. SL PRN (11:15)
[2016-10-04] MEDS: PANTOPRAZOLE 40 MG TABLET.DR. PO SCH (12:01)
[2016-10-04] MEDS: FLUTICASONE 50MCG/NASAL SPRAY 16GM BOTTLE. NS SCH (12:01)
[2016-10-04] MEDS: amLODIPine BESYLATE 10 MG TABLET PO SCH (12:03)
[2016-10-04] MEDS: LISINOPRIL 40 MG TABLET. PO SCH (12:03)
[2016-10-04] MEDS: NICOTINE 21MG PATCH. TD SCH (12:04)
[2016-10-04] MEDS: ALLOPURINOL 100 MG TABLET. PO SCH (12:07)
[2016-10-04] MEDS: busPIRone 10 MG TABLET. PO SCH ×3 (12:07→21:01)
[2016-10-04] MEDS: VENLAFAXINE 50 MG TABLET. PO SCH ×3 (12:07→21:01)
[2016-10-04] MEDS: CETIRIZINE HCL 10 MG TABLET. PO SCH (12:07)
--- NOTE | 2016-10-04 12:37 | PDOC ---
PULMONARY PROGRESS NOTES Subjective S/P CATH Vitals Vital Signs Date Time Temp Pulse Resp B/P (MAP) Pulse Ox O2 Delivery O2 Flow Rate FiO2 10/04/16 12:13 97.3 85 19 154/103 (120) 97 Nasal Cannula 3.0 97.3 General: Alert, No acute distress Lungs: Clear Cardiovascular: S1 Abdomen: Soft, Other (obese) Neuro Exam: Alert Extremities: Other (1+edema) Skin: Warm Labs Laboratory Tests Test 10/03/16 05:00 10/03/16 09:03 10/03/16 11:00 10/03/16 11:57 White Blood Count 10.9 x10^3/uL (4.0-11.0) Red Blood Count 5.24 x10^6/uL (4.30-5.70) Hemoglobin 16.2 g/dL (13.0-17.5) Hematocrit 48.8 % (39.0-53.0) Mean Corpuscular Volume 93 fL (79-100) Mean Corpuscular Hemoglobin 31 pg (25-35) Mean Corpuscular Hemoglobin Concent 33 g/dL (31-37) Red Cell Distribution Width 14.6 % (11.5-14.5) Platelet Count 251 x10^3/uL (140-400) Neutrophils (%) (Auto) 65 % (31-73) Lymphocytes (%) (Auto) 23 % (24-48) Monocytes (%) (Auto) 8 % (0-9) Eosinophils (%) (Auto) 3 % (0-3) Basophils (%) (Auto) 1 % (0-3) Neutrophils # (Auto) 7.1 x10^3uL (1.8-7.7) Lymphocytes # (Auto) 2.5 x10^3/uL (1.0-4.8) Monocytes # (Auto) 0.9 x10^3/uL (0.0-1.1) Eosinophils # (Auto) 0.3 x10^3/uL (0.0-0.7) Basophils # (Auto) 0.1 x10^3/uL (0.0-0.2) Sodium Level 141 mmol/L (136-145) Potassium Level 4.0 mmol/L (3.5-5.1) Chloride Level 103 mmol/L (98-107) Carbon Dioxide Level 32 mmol/L (21-32) Anion Gap 6 (6-14) Blood Urea Nitrogen 13 mg/dL (8-26) Creatinine 1.1 mg/dL (0.7-1.3) Estimated GFR (Cockcroft-Gault) 70.0 BUN/Creatinine Ratio 12 (6-20) Glucose Level 119 mg/dL (70-99) Calcium Level 9.4 mg/dL (8.5-10.1) Magnesium Level 1.8 mg/dL (1.8-2.4) Total Bilirubin 0.2 mg/dL (0.2-1.0) Aspartate Amino Transf (AST/SGOT) 23 U/L (15-37) Alanine Aminotransferase (ALT/SGPT) 30 U/L (16-63) Alkaline Phosphatase 89 U/L (46-116) Troponin I Quantitative 2.284 ng/mL (0.000-0.055) 1.926 ng/mL (0.000-0.055) Total Protein 6.7 g/dL (6.4-8.2) Albumin 3.0 g/dL (3.4-5.0) Albumin/Globulin Ratio 0.8 (1.0-1.7) Triglycerides Level 146 mg/dL (0-150) Cholesterol Level 148 mg/dL (0-200) LDL Cholesterol, Calculated 92 mg/dL (0-100) VLDL Cholesterol, Calculated 29 mg/dL (0-40) Non-HDL Cholesterol Calculated 121 mg/dL (0-129) HDL Cholesterol 27 mg/dL (40-60) Cholesterol/HDL Ratio 5.5 Thyroid Stimulating Hormone (TSH) 1.216 uIU/mL (0.358-3.74) Glucose (Fingerstick) 121 mg/dL (70-99) 142 mg/dL (70-99) Creatine Kinase 128 U/L (39-308) Test 10/03/16 12:00 10/03/16 12:20 10/03/16 16:42 10/03/16 20:00 Heparin Anti-Xa Act, Unfractionated 0.10 IU/mL (0.30-0.70) 0.10 IU/mL (0.30-0.70) O2 Saturation 92 % (92-99) Arterial Blood pH 7.39 (7.35-7.45) Arterial Blood pCO2 at Patient Temp 46 mmHg (35-46) Arterial Blood pO2 at Patient Temp 66 mmHg (75-108) Arterial Blood HCO3 27 mmol/L (21-28) Arterial Blood Base Excess 2 mmol/L (-3-3) FiO2 28.0 Glucose (Fingerstick) 148 mg/dL (70-99) Test 10/03/16 21:13 10/04/16 03:30 10/04/16 07:56 10/04/16 10:21 Glucose (Fingerstick) 197 mg/dL (70-99) 167 mg/dL (70-99) White Blood Count 8.9 x10^3/uL (4.0-11.0) Red Blood Count 5.31 x10^6/uL (4.30-5.70) Hemoglobin 16.3 g/dL (13.0-17.5) Hematocrit 49.8 % (39.0-53.0) Mean Corpuscular Volume 94 fL (79-100) Mean Corpuscular Hemoglobin 31 pg (25-35) Mean Corpuscular Hemoglobin Concent 33 g/dL (31-37) Red Cell Distribution Width 14.8 % (11.5-14.5) Platelet Count 269 x10^3/uL (140-400) Neutrophils (%) (Auto) 93 % (31-73) Lymphocytes (%) (Auto) 5 % (24-48) Monocytes (%) (Auto) 2 % (0-9) Eosinophils (%) (Auto) 0 % (0-3) Basophils (%) (Auto) 0 % (0-3) Neutrophils # (Auto) 8.3 x10^3uL (1.8-7.7) Lymphocytes # (Auto) 0.4 x10^3/uL (1.0-4.8) Monocytes # (Auto) 0.2 x10^3/uL (0.0-1.1) Eosinophils # (Auto) 0.0 x10^3/uL (0.0-0.7) Basophils # (Auto) 0.0 x10^3/uL (0.0-0.2) Segmented Neutrophils % 93 % (35-66) Lymphocytes % 6 % (24-48) Monocytes % 1 % (0-10) Platelet Estimate Adequate (ADEQUATE) Giant Platelets Few Heparin Anti-Xa Act, Unfractionated < 0.10 IU/mL (0.30-0.70) Sodium Level 142 mmol/L (136-145) Potassium Level 4.9 mmol/L (3.5-5.1) Chloride Level 105 mmol/L (98-107) Carbon Dioxide Level 32 mmol/L (21-32) Anion Gap 5 (6-14) Blood Urea Nitrogen 12 mg/dL (8-26) Creatinine 0.9 mg/dL (0.7-1.3) Estimated GFR (Cockcroft-Gault) 88.3 Glucose Level 154 mg/dL (70-99) Calcium Level 9.5 mg/dL (8.5-10.1) Activated Clotting Time 148 sec (92-181) Test 10/04/16 11:52 Glucose (Fingerstick) 161 mg/dL (70-99) Laboratory Tests Test 10/03/16 16:42 10/03/16 20:00 10/03/16 21:13 10/04/16 03:30 Glucose (Fingerstick) 148 mg/dL (70-99) 197 mg/dL (70-99) Heparin Anti-Xa Act, Unfractionated 0.10 IU/mL (0.30-0.70) < 0.10 IU/mL (0.30-0.70) White Blood Count 8.9 x10^3/uL (4.0-11.0) Red Blood Count 5.31 x10^6/uL (4.30-5.70) Hemoglobin 16.3 g/dL (13.0-17.5) Hematocrit 49.8 % (39.0-53.0) Mean Corpuscular Volume 94 fL (79-100) Mean Corpuscular Hemoglobin 31 pg (25-35) Mean Corpuscular Hemoglobin Concent 33 g/dL (31-37) Red Cell Distribution Width 14.8 % (11.5-14.5) Platelet Count 269 x10^3/uL (140-400) Neutrophils (%) (Auto) 93 % (31-73) Lymphocytes (%) (Auto) 5 % (24-48) Monocytes (%) (Auto) 2 % (0-9) Eosinophils (%) (Auto) 0 % (0-3) Basophils (%) (Auto) 0 % (0-3) Neutrophils # (Auto) 8.3 x10^3uL (1.8-7.7) Lymphocytes # (Auto) 0.4 x10^3/uL (1.0-4.8) Monocytes # (Auto) 0.2 x10^3/uL (0.0-1.1) Eosinophils # (Auto) 0.0 x10^3/uL (0.0-0.7) Basophils # (Auto) 0.0 x10^3/uL (0.0-0.2) Segmented Neutrophils % 93 % (35-66) Lymphocytes % 6 % (24-48) Monocytes % 1 % (0-10) Platelet Estimate Adequate (ADEQUATE) Giant Platelets Few Sodium Level 142 mmol/L (136-145) Potassium Level 4.9 mmol/L (3.5-5.1) Chloride Level 105 mmol/L (98-107) Carbon Dioxide Level 32 mmol/L (21-32) Anion Gap 5 (6-14) Blood Urea Nitrogen 12 mg/dL (8-26) Creatinine 0.9 mg/dL (0.7-1.3) Estimated GFR (Cockcroft-Gault) 88.3 Glucose Level 154 mg/dL (70-99) Calcium Level 9.5 mg/dL (8.5-10.1) Test 10/04/16 07:56 10/04/16 10:21 10/04/16 11:52 Glucose (Fingerstick) 167 mg/dL (70-99) 161 mg/dL (70-99) Activated Clotting Time 148 sec (92-181) Medications Active Scripts Medications Dose Route/Sig Max Daily Dose Days Date Category B-12 (Cyanocobalamin (Vitamin B-12)) 1,000 Mcg Tablet.er 1,000 Mcg PO DAILY 10/03/16 Reported Aspir 81 (Aspirin) 81 Mg Tablet.dr 1 Tab PO DAILY 10/03/16 Reported Afrin (Oxymetazoline Hcl) 15 Ml Mist 15 Ml NS PRN Q6HRS PRN 10/03/16 Reported NITROGLYCERIN SubLingual (Nitroglycerin) 0.4 Mg Tab.subl 0.4 Mg SL PRN Q5MIN PRN 10/03/16 Reported Lisinopril 30 Mg Tablet 30 Mg PO DAILY 10/03/16 Reported Buspirone Hcl 10 Mg Tablet 10 Mg PO TID 10/03/16 Reported Venlafaxine Hcl 75 Mg Tablet 150 Mg PO DAILY 10/03/16 Reported Viagra (Sildenafil Citrate) 50 Mg Tablet 1 Tab PO UD 10/03/16 Reported Omeprazole 40 Mg Capsule.dr 40 Mg PO DAILY 10/03/16 Reported NICODERM CQ 21mg (Nicotine) 1 Each Patch.td24 1 Patch TD DAILY 10/03/16 Reported Metformin Hcl 500 Mg Tablet 500 Mg PO BIDWMEALS 10/03/16 Reported Loratadine 10 Mg Tablet 10 Mg PO PRN DAILY PRN 10/03/16 Reported Fluticasone Propionate Nasal [place] (Fluticasone Propionate) 16 Gm [place].susp 2 [place] NS DAILY 10/03/16 Reported Cetirizine Hcl 10 Mg Tablet 1 Tab PO DAILY 10/03/16 Reported Symbicort 80-4.5 Mcg Inhaler (Budesonide/Formoterol Fumarate) 10.2 Gm Hfa.aer.ad 2 Puff IH BID 10/03/16 Reported Allopurinol 100 Mg Tablet 100 Mg PO DAILY 10/03/16 Reported Combivent Respimat Inhal (Ipratropium/Albuterol Sulfate) 4 Gm Aer.w.adap 2 Inh IH PRN QID PRN 10/03/16 Reported Impression . NSTEMI: ABG adequate Accelerated HTN Arrhythmia: SVT, junctional, SB Syncope DM2/HLP KIRSTIE Morbid obesity Heavy tobaccoism IV contrast allergy: angioedema s/p cath Plan . 1. TTE per cardiology 2. Follow [facility] report 3. BIPAP,qhs 4. BP f/u per cardiology d/w YAKOV TORRES MD Oct 04, 2016 12:37
--- NOTE | 2016-10-04 13:58 | PDOC ---
PROGRESS NOTES Chief Complaint Chief Complaint syncope, possible 2/2 arrythmia Arrythmia, svt, junctional need to rule out sick sinus syndrome NSTMEI with elevated troponin but no chest pain KIRSTIE copd tobaccoism morbid obesity htn dm2 anxiety plan: pulm, card consult TTE, MAY need PPM? Cont CPAP, albuterol prn on heparin drip, need cath, but allergic to cath contrast before, prednisone prep today as per sx cont home meds, but hold veagra Hold metformin, add ssi xanax prn cath today, waiting for result close watch BP History of Present Illness History of Present Illness pt feels better today, sleep better with cpap on BP still high cath today Vitals Vitals Vital Signs Date Time Temp Pulse Resp B/P (MAP) Pulse Ox O2 Delivery O2 Flow Rate FiO2 10/04/16 12:13 97.3 85 19 154/103 (120) 97 Nasal Cannula 3.0 97.3 Physical Exam General: Alert, Oriented X3, Cooperative, No acute distress Heart: Regular rate (SR), Normal S1, Normal S2, Other (2/6 systolic murmur to LLS border) Lungs: Clear Abdomen: Soft, No tenderness, Other (truncal obesity) Extremities: No cyanosis, No edema Skin: No breakdown, No significant lesion Labs LABS Laboratory Tests Test 10/03/16 16:42 10/03/16 20:00 10/03/16 21:13 10/04/16 03:30 Glucose (Fingerstick) 148 mg/dL (70-99) 197 mg/dL (70-99) Heparin Anti-Xa Act, Unfractionated 0.10 IU/mL (0.30-0.70) < 0.10 IU/mL (0.30-0.70) White Blood Count 8.9 x10^3/uL (4.0-11.0) Red Blood Count 5.31 x10^6/uL (4.30-5.70) Hemoglobin 16.3 g/dL (13.0-17.5) Hematocrit 49.8 % (39.0-53.0) Mean Corpuscular Volume 94 fL (79-100) Mean Corpuscular Hemoglobin 31 pg (25-35) Mean Corpuscular Hemoglobin Concent 33 g/dL (31-37) Red Cell Distribution Width 14.8 % (11.5-14.5) Platelet Count 269 x10^3/uL (140-400) Neutrophils (%) (Auto) 93 % (31-73) Lymphocytes (%) (Auto) 5 % (24-48) Monocytes (%) (Auto) 2 % (0-9) Eosinophils (%) (Auto) 0 % (0-3) Basophils (%) (Auto) 0 % (0-3) Neutrophils # (Auto) 8.3 x10^3uL (1.8-7.7) Lymphocytes # (Auto) 0.4 x10^3/uL (1.0-4.8) Monocytes # (Auto) 0.2 x10^3/uL (0.0-1.1) Eosinophils # (Auto) 0.0 x10^3/uL (0.0-0.7) Basophils # (Auto) 0.0 x10^3/uL (0.0-0.2) Segmented Neutrophils % 93 % (35-66) Lymphocytes % 6 % (24-48) Monocytes % 1 % (0-10) Platelet Estimate Adequate (ADEQUATE) Giant Platelets Few Sodium Level 142 mmol/L (136-145) Potassium Level 4.9 mmol/L (3.5-5.1) Chloride Level 105 mmol/L (98-107) Carbon Dioxide Level 32 mmol/L (21-32) Anion Gap 5 (6-14) Blood Urea Nitrogen 12 mg/dL (8-26) Creatinine 0.9 mg/dL (0.7-1.3) Estimated GFR (Cockcroft-Gault) 88.3 Glucose Level 154 mg/dL (70-99) Calcium Level 9.5 mg/dL (8.5-10.1) Test 10/04/16 07:56 10/04/16 10:21 10/04/16 11:52 Glucose (Fingerstick) 167 mg/dL (70-99) 161 mg/dL (70-99) Activated Clotting Time 148 sec (92-181) Review of Systems Review of Systems no fever, chills, sob or chest pain Comment Review of Relevant I have reviewed the following items lena (where applicable) has been applied. Labs Laboratory Tests Test 10/03/16 05:00 10/03/16 09:03 10/03/16 11:00 7/12/17 11:57 White Blood Count 10.9 x10^3/uL (4.0-11.0) Red Blood Count 5.24 x10^6/uL (4.30-5.70) Hemoglobin 16.2 g/dL (13.0-17.5) Hematocrit 48.8 % (39.0-53.0) Mean Corpuscular Volume 93 fL (79-100) Mean Corpuscular Hemoglobin 31 pg (25-35) Mean Corpuscular Hemoglobin Concent 33 g/dL (31-37) Red Cell Distribution Width 14.6 % (11.5-14.5) Platelet Count 251 x10^3/uL (140-400) Neutrophils (%) (Auto) 65 % (31-73) Lymphocytes (%) (Auto) 23 % (24-48) Monocytes (%) (Auto) 8 % (0-9) Eosinophils (%) (Auto) 3 % (0-3) Basophils (%) (Auto) 1 % (0-3) Neutrophils # (Auto) 7.1 x10^3uL (1.8-7.7) Lymphocytes # (Auto) 2.5 x10^3/uL (1.0-4.8) Monocytes # (Auto) 0.9 x10^3/uL (0.0-1.1) Eosinophils # (Auto) 0.3 x10^3/uL (0.0-0.7) Basophils # (Auto) 0.1 x10^3/uL (0.0-0.2) Sodium Level 141 mmol/L (136-145) Potassium Level 4.0 mmol/L (3.5-5.1) Chloride Level 103 mmol/L (98-107) Carbon Dioxide Level 32 mmol/L (21-32) Anion Gap 6 (6-14) Blood Urea Nitrogen 13 mg/dL (8-26) Creatinine 1.1 mg/dL (0.7-1.3) Estimated GFR (Cockcroft-Gault) 70.0 BUN/Creatinine Ratio 12 (6-20) Glucose Level 119 mg/dL (70-99) Calcium Level 9.4 mg/dL (8.5-10.1) Magnesium Level 1.8 mg/dL (1.8-2.4) Total Bilirubin 0.2 mg/dL (0.2-1.0) Aspartate Amino Transf (AST/SGOT) 23 U/L (15-37) Alanine Aminotransferase (ALT/SGPT) 30 U/L (16-63) Alkaline Phosphatase 89 U/L (46-116) Troponin I Quantitative 2.284 ng/mL (0.000-0.055) 1.926 ng/mL (0.000-0.055) Total Protein 6.7 g/dL (6.4-8.2) Albumin 3.0 g/dL (3.4-5.0) Albumin/Globulin Ratio 0.8 (1.0-1.7) Triglycerides Level 146 mg/dL (0-150) Cholesterol Level 148 mg/dL (0-200) LDL Cholesterol, Calculated 92 mg/dL (0-100) VLDL Cholesterol, Calculated 29 mg/dL (0-40) Non-HDL Cholesterol Calculated 121 mg/dL (0-129) HDL Cholesterol 27 mg/dL (40-60) Cholesterol/HDL Ratio 5.5 Thyroid Stimulating Hormone (TSH) 1.216 uIU/mL (0.358-3.74) Glucose (Fingerstick) 121 mg/dL (70-99) 142 mg/dL (70-99) Creatine Kinase 128 U/L (39-308) Test 10/03/16 12:00 10/03/16 12:20 10/03/16 16:42 10/03/16 20:00 Heparin Anti-Xa Act, Unfractionated 0.10 IU/mL (0.30-0.70) 0.10 IU/mL (0.30-0.70) O2 Saturation 92 % (92-99) Arterial Blood pH 7.39 (7.35-7.45) Arterial Blood pCO2 at Patient Temp 46 mmHg (35-46) Arterial Blood pO2 at Patient Temp 66 mmHg (75-108) Arterial Blood HCO3 27 mmol/L (21-28) Arterial Blood Base Excess 2 mmol/L (-3-3) FiO2 28.0 Glucose (Fingerstick) 148 mg/dL (70-99) Test 10/03/16 21:13 10/04/16 03:30 10/04/16 07:56 10/04/16 10:21 Glucose (Fingerstick) 197 mg/dL (70-99) 167 mg/dL (70-99) White Blood Count 8.9 x10^3/uL (4.0-11.0) Red Blood Count 5.31 x10^6/uL (4.30-5.70) Hemoglobin 16.3 g/dL (13.0-17.5) Hematocrit 49.8 % (39.0-53.0) Mean Corpuscular Volume 94 fL (79-100) Mean Corpuscular Hemoglobin 31 pg (25-35) Mean Corpuscular Hemoglobin Concent 33 g/dL (31-37) Red Cell Distribution Width 14.8 % (11.5-14.5) Platelet Count 269 x10^3/uL (140-400) Neutrophils (%) (Auto) 93 % (31-73) Lymphocytes (%) (Auto) 5 % (24-48) Monocytes (%) (Auto) 2 % (0-9) Eosinophils (%) (Auto) 0 % (0-3) Basophils (%) (Auto) 0 % (0-3) Neutrophils # (Auto) 8.3 x10^3uL (1.8-7.7) Lymphocytes # (Auto) 0.4 x10^3/uL (1.0-4.8) Monocytes # (Auto) 0.2 x10^3/uL (0.0-1.1) Eosinophils # (Auto) 0.0 x10^3/uL (0.0-0.7) Basophils # (Auto) 0.0 x10^3/uL (0.0-0.2) Segmented Neutrophils % 93 % (35-66) Lymphocytes % 6 % (24-48) Monocytes % 1 % (0-10) Platelet Estimate Adequate (ADEQUATE) Giant Platelets Few Heparin Anti-Xa Act, Unfractionated < 0.10 IU/mL (0.30-0.70) Sodium Level 142 mmol/L (136-145) Potassium Level 4.9 mmol/L (3.5-5.1) Chloride Level 105 mmol/L (98-107) Carbon Dioxide Level 32 mmol/L (21-32) Anion Gap 5 (6-14) Blood Urea Nitrogen 12 mg/dL (8-26) Creatinine 0.9 mg/dL (0.7-1.3) Estimated GFR (Cockcroft-Gault) 88.3 Glucose Level 154 mg/dL (70-99) Calcium Level 9.5 mg/dL (8.5-10.1) Activated Clotting Time 148 sec (92-181) Test 10/04/16 11:52 Glucose (Fingerstick) 161 mg/dL (70-99) Laboratory Tests Test 10/03/16 16:42 10/03/16 20:00 10/03/16 21:13 10/04/16 03:30 Glucose (Fingerstick) 148 mg/dL (70-99) 197 mg/dL (70-99) Heparin Anti-Xa Act, Unfractionated 0.10 IU/mL (0.30-0.70) < 0.10 IU/mL (0.30-0.70) White Blood Count 8.9 x10^3/uL (4.0-11.0) Red Blood Count 5.31 x10^6/uL (4.30-5.70) Hemoglobin 16.3 g/dL (13.0-17.5) Hematocrit 49.8 % (39.0-53.0) Mean Corpuscular Volume 94 fL (79-100) Mean Corpuscular Hemoglobin 31 pg (25-35) Mean Corpuscular Hemoglobin Concent 33 g/dL (31-37) Red Cell Distribution Width 14.8 % (11.5-14.5) Platelet Count 269 x10^3/uL (140-400) Neutrophils (%) (Auto) 93 % (31-73) Lymphocytes (%) (Auto) 5 % (24-48) Monocytes (%) (Auto) 2 % (0-9) Eosinophils (%) (Auto) 0 % (0-3) Basophils (%) (Auto) 0 % (0-3) Neutrophils # (Auto) 8.3 x10^3uL (1.8-7.7) Lymphocytes # (Auto) 0.4 x10^3/uL (1.0-4.8) Monocytes # (Auto) 0.2 x10^3/uL (0.0-1.1) Eosinophils # (Auto) 0.0 x10^3/uL (0.0-0.7) Basophils # (Auto) 0.0 x10^3/uL (0.0-0.2) Segmented Neutrophils % 93 % (35-66) Lymphocytes % 6 % (24-48) Monocytes % 1 % (0-10) Platelet Estimate Adequate (ADEQUATE) Giant Platelets Few Sodium Level 142 mmol/L (136-145) Potassium Level 4.9 mmol/L (3.5-5.1) Chloride Level 105 mmol/L (98-107) Carbon Dioxide Level 32 mmol/L (21-32) Anion Gap 5 (6-14) Blood Urea Nitrogen 12 mg/dL (8-26) Creatinine 0.9 mg/dL (0.7-1.3) Estimated GFR (Cockcroft-Gault) 88.3 Glucose Level 154 mg/dL (70-99) Calcium Level 9.5 mg/dL (8.5-10.1) Test 10/04/16 07:56 10/04/16 10:21 10/04/16 11:52 Glucose (Fingerstick) 167 mg/dL (70-99) 161 mg/dL (70-99) Activated Clotting Time 148 sec (92-181) Medications Current Medications Heparin Sodium/ Dextrose 500 ml @ 0 mls/hr CONT PRN IV SEE I/O RECORD Last administered on 10/03/16 22:15; Start 10/03/16 at 06:00 Heparin Sodium (Porcine) (Heparin Sodium) 4,100 unit PRN Q6HRS PRN IV FOR UFH LEVEL LESS THAN 0.2 Last administered on 10/04/16 05:00; Start 10/03/16 at 06: 00 Info (Anti-Coagulation Monitoring By Pharmacy) 1 each PRN DAILY PRN MC SEE COMMENTS Last administered on 10/03/16 05:54; Start 10/03/16 at 06:00 Hydralazine HCl (Apresoline) 10 mg PRN Q4HRS PRN IVP ELEVATED BP, SEE COMMENTS Last administered on 10/03/16 08:37; Start 10/03/16 at 08:30; Stop 10/03/16 at 09:18; Status DC Lisinopril (Prinivil) 40 mg DAILY PO Last administered on 10/04/16 12:03; Start 10/03/16 at 09:00 Acetaminophen (Tylenol) 650 mg PRN Q6HRS PRN PO FEVER; Start 10/03/16 at 09:15 Ondansetron HCl (Zofran) 4 mg PRN Q6HRS PRN IV NAUSEA/VOMITING; Start 10/03/16 at 09:15 Morphine Sulfate 2 mg PRN Q2HR PRN IV PAIN; Start 10/03/16 at 09:15 Tramadol HCl (Ultram) 50 mg PRN Q6HRS PRN PO PAIN Last administered on 21:58; Start 10/03/16 at 09:15 Hydralazine HCl (Apresoline) 10 mg PRN Q4HRS PRN IVP ELEVATED BP, SEE COMMENTS Last administered on 10/04/16 03:51; Start 10/03/16 at 09:15 Docusate Sodium (Colace) 100 mg PRN DAILY PRN PO CONSTIPATION; Start 10/03/16 at 09:15 Alprazolam (Xanax) 0.25 mg PRN DAILY PRN PO ANXIETY / AGITATION Last administered on 10/03/16 09:51; Start 10/03/16 at 09:15 Amlodipine Besylate (Norvasc) 10 mg DAILY PO Last administered on 10/04/16 12: 03; Start 10/03/16 at 10:00 Sulfur Hexafluoride Microspheres (Lumason) 25 mg STK-MED ONCE IVP ; Start at 10:27; Stop 10/03/16 at 10:28; Status DC Allopurinol (Zyloprim) 100 mg DAILY PO Last administered on 10/04/16 12:07; Start 10/03/16 at 11:00 Aspirin (Ecotrin) 81 mg DAILY PO Last administered on 10/04/16 09:36; Start at 11:00 Buspirone HCl (Buspar) 10 mg TID PO Last administered on 10/04/16 12:07; Start 10/03/16 at 14:00 Cetirizine HCl (ZyrTEC) 10 mg DAILY PO Last administered on 10/04/16 12:07; Start 10/03/16 at 11:00 Fluticasone Propionate (Flonase) 2 spray DAILY NS Last administered on 12:01; Start 10/04/16 at 09:00 Nicotine (Nicoderm Cq 21mg) 1 patch DAILY TD ; Start 10/04/16 at 09:00; Stop at 09:00; Status DC Nitroglycerin (Nitrostat) 0.4 mg PRN Q5MIN PRN SL CHEST PAIN; Start 10/03/16 at 10:45 Venlafaxine HCl (Effexor) 50 mg TID PO Last administered on 10/04/16 12:07; Start 10/03/16 at 11:00 Non-Formulary Medication 2 puff BID IH ; Start 10/03/16 at 21:00; Status UNV Non-Formulary Medication 2 inh PRN QID PRN IH SHORTNESS OF BREATH; Start at 10:45; Status UNV Non-Formulary Medication 10 mg PRN DAILY PRN PO ALLERGIES; Start 10/03/16 at 10 :45; Status UNV Pantoprazole Sodium (Protonix) 40 mg DAILYAC PO Last administered on 10/04/16 12:01; Start 10/03/16 at 11:00 Albuterol Sulfate (Ventolin Neb Soln) 2.5 mg PRN QID PRN NEB SHORTNESS OF BREATH Last administered on 10/04/16 07:59; Start 10/03/16 at 11:00 Budesonide (Pulmicort) 0.5 mg RTBID NEB ; Start 10/03/16 at 20:00; Status UNV Budesonide (Pulmicort) 0.5 mg RTBID NEB Last administered on 10/04/16 08:00; Start 10/03/16 at 11:00 Albuterol Sulfate (Ventolin Neb Soln) 2.5 mg RTQID NEB Last administered on 12:12; Start 10/03/16 at 12:00; Stop 10/03/16 at 13:13; Status DC Sulfur Hexafluoride Microspheres (Lumason) 25 mg 1X ONCE IVP Last administered on 10/03/16 10:55; Start 10/03/16 at 11:00; Stop 10/03/16 at 11:01 ; Status DC Nicotine (Nicoderm Cq 21mg) 1 patch DAILY TD Last administered on 10/04/16 12: 04; Start 10/03/16 at 11:45 Insulin Aspart (NovoLOG) 0-9 UNITS TIDWMEALS SQ Last administered on 10/04/16 12:19; Start 10/03/16 at 12:00 Dextrose (Dextrose 50%-Water Syringe) 12.5 gm PRN Q15MIN PRN IV SEE COMMENTS; Start 10/03/16 at 12:00 Famotidine (Pepcid) 20 mg BID PO Last administered on 10/03/16 21:47; Start at 12:45; Stop 10/03/16 at 22:00; Status DC Diphenhydramine HCl (Benadryl) 50 mg 1X ONCE PO Last administered on 06:37; Start 10/04/16 at 07:00; Stop 10/04/16 at 07:01; Status DC Famotidine (Pepcid) 40 mg 1X ONCE PO Last administered on 10/04/16 06:39; Start 10/04/16 at 07:00; Stop 10/04/16 at 07:01; Status DC Prednisone (Prednisone) 50 mg Q6HRS PO Last administered on 10/04/16 06:37; Start 10/03/16 at 18:00; Stop 10/04/16 at 08:00; Status DC Atorvastatin Calcium (Lipitor) 20 mg QHS PO Last administered on 10/03/16 21: 47; Start 10/03/16 at 21:00 Labetalol HCl (Normodyne) 20 mg 1X ONCE IVP Last administered on 10/03/16 15: 58; Start 10/03/16 at 16:00; Stop 10/03/16 at 16:01; Status DC Labetalol HCl (Normodyne) 20 mg PRN Q2HR PRN IVP HYPERTENSION, SEE COMMENTS; Start 10/03/16 at 16:30 Metoprolol Tartrate (Lopressor) 5 mg Q6HRS IVP Last administered on 10/04/16 12:08; Start 10/04/16 at 00:00 Metoprolol Tartrate (Lopressor) 5 mg 1X ONCE IVP ; Start 10/03/16 at 19:45; Stop 10/03/16 at 19:46; Status DC Lidocaine HCl 20 ml STK-MED ONCE .ROUTE ; Start 10/04/16 at 08:43; Stop at 08:44; Status DC Iohexol (Omnipaque 350 Mg/ml) 100 ml STK-MED ONCE .ROUTE ; Start 10/04/16 at 08: 43; Stop 10/04/16 at 08:44; Status DC Heparin Sodium/ Sodium Chloride 1,000 ml @ As Directed STK-MED ONCE .ROUTE ; Start 10/04/16 at 08:43; Stop 10/04/16 at 08:44; Status DC Heparin Sodium/ Sodium Chloride 1,000 unit 1X ONCE IART Last administered on 10:30; Start 10/04/16 at 09:30; Stop 10/04/16 at 09:31; Status DC Midazolam HCl (Versed) 2 mg 1X ONCE IV Last administered on 10/04/16 10:31; Start 10/04/16 at 09:30; Stop 10/04/16 at 09:31; Status DC Fentanyl Citrate (Fentanyl 2ml Vial) 100 mcg 1X ONCE IV Last administered on 10:32; Start 10/04/16 at 09:30; Stop 10/04/16 at 09:31; Status DC Iohexol (Omnipaque 300 Mg/ml) 100 ml 1X ONCE IART Last administered on 10:32; Start 10/04/16 at 09:30; Stop 10/04/16 at 09:31; Status DC Lidocaine HCl 20 ml 1X ONCE IJ Last administered on 10/04/16 10:32; Start at 09:30; Stop 10/04/16 at 09:31; Status DC Info (Do NOT chart on this entry -- for MONITORING) 1 each PRN DAILY PRN MC SEE COMMENTS; Start 10/04/16 at 09:30; Stop 10/06/16 at 09:29 Methylprednisolone Sodium Succinate (SOLU-Medrol 125MG VIAL) 125 mg STK-MED ONCE .ROUTE ; Start 10/04/16 at 09:27; Stop 10/04/16 at 09:28; Status DC Methylprednisolone Sodium Succinate (SOLU-Medrol 125MG VIAL) 125 mg 1X ONCE IV ; Start 10/04/16 at 09:45; Stop 10/04/16 at 09:45; Status DC Heparin Sodium/ Sodium Chloride 500 ml @ As Directed STK-MED ONCE .ROUTE ; Start 10/04/16 at 09:56; Stop 10/04/16 at 09:57; Status DC Midazolam HCl (Versed) 2 mg STK-MED ONCE .ROUTE ; Start 10/04/16 at 10:16; Stop 10/04/16 at 10:17; Status DC Iohexol (Omnipaque 350 Mg/ml) 100 ml STK-MED ONCE .ROUTE ; Start 10/04/16 at 10: 37; Stop 10/04/16 at 10:38; Status DC Bivalirudin (Angiomax) 250 mg STK-MED ONCE IV ; Start 10/04/16 at 10:37; Stop at 10:38; Status DC Bivalirudin (Angiomax) 250 mg 1X ONCE IV Last administered on 10/04/16t 10:55 ; Start 10/04/16 at 11:00; Stop 10/04/16 at 11:01; Status DC Aspirin (Robinson Aspirin) 325 mg 1X ONCE PO ; Start 10/04/16 at 11:00; Stop 10/04 at 11:01; Status DC Sodium Chloride (Normal Saline Flush) 3 ml QSHIFT PRN IV AFTER MEDS AND BLOOD DRAWS; Start 10/04/16 at 11:15 Sodium Chloride 1,000 ml @ 75 mls/hr [id number] IV Last administered on t 12:08; Start 10/04/16 at 11:01; Stop 10/04/16 at 19:00 Nitroglycerin (Nitrostat) 0.4 mg PRN Q5MIN PRN SL CHEST PAIN; Start 10/04/16 at 11:15 Active Scripts Active Reported B-12 (Cyanocobalamin (Vitamin B-12)) 1,000 Mcg Tablet.er 1,000 Mcg PO DAILY Aspir 81 (Aspirin) 81 Mg Tablet.dr 1 Tab PO DAILY Afrin (Oxymetazoline Hcl) 15 Ml Mist 15 Ml NS PRN Q6HRS PRN NITROGLYCERIN SubLingual (Nitroglycerin) 0.4 Mg Tab.subl 0.4 Mg SL PRN Q5MIN PRN Lisinopril 30 Mg Tablet 30 Mg PO DAILY Buspirone Hcl 10 Mg Tablet 10 Mg PO TID Venlafaxine Hcl 75 Mg Tablet 150 Mg PO DAILY Viagra (Sildenafil Citrate) 50 Mg Tablet 1 Tab PO UD Omeprazole 40 Mg Capsule.dr 40 Mg PO DAILY NICODERM CQ 21mg (Nicotine) 1 Each Patch.td24 1 Patch TD DAILY Metformin Hcl 500 Mg Tablet 500 Mg PO BIDWMEALS Loratadine 10 Mg Tablet 10 Mg PO PRN DAILY PRN Fluticasone Propionate Nasal [place] (Fluticasone Propionate) 16 Gm [place].susp 2 [place] NS DAILY Cetirizine Hcl 10 Mg Tablet 1 Tab PO DAILY Symbicort 80-4.5 Mcg Inhaler (Budesonide/Formoterol Fumarate) 10.2 Gm Hfa.aer.ad 2 Puff IH BID Allopurinol 100 Mg Tablet 100 Mg PO DAILY Combivent Respimat Inhal (Ipratropium/Albuterol Sulfate) 4 Gm Aer.w.adap 2 Inh IH PRN QID PRN Vitals/I & O Vital Sign - Last 24 Hours 10/03/16 10/03/16 10/03/16 10/03/16 15:00 15:58 18:18 19:18 Temp 98.2 98.2 Pulse 152 95 76 Resp 16 B/P (MAP) 187/122 (143) 187/122 149/81 (103) Pulse Ox 93 99 O2 Delivery Nasal Cannula Nasal Cannula O2 Flow Rate 3.0 2.0 10/03/16 10/03/16 10/03/16 10/03/16 19:45 20:00 21:58 22:17 Pulse 77 Resp 22 O2 Delivery Nasal Cannula Room Air BiPAP/CPAP O2 Flow Rate 3.0 10/03/16 10/03/16 10/04/16 10/04/16 22:55 23:10 00:01 00:12 Temp 97.8 97.8 Pulse 62 90 Resp 18 18 B/P (MAP) 151/96 (114) 204/109 Pulse Ox 95 O2 Delivery BiPAP/CPAP Nasal Cannula BiPAP/CPAP O2 Flow Rate 3.0 10/04/16 10/04/16 10/04/16 10/04/16 02:32 03:35 03:51 04:05 Temp 97.6 97.6 Pulse 85 70 64 Resp 20 18 B/P (MAP) 212/116 (148) 212/116 147/80 (102) Pulse Ox 94 O2 Delivery BiPAP/CPAP BiPAP/CPAP BiPAP/CPAP 10/04/16 10/04/16 10/04/16 10/04/16 04:39 06:30 07:03 08:03 Temp 97.8 97.8 Pulse 85 85 Resp 18 B/P (MAP) 152/88 (109) 152/88 Pulse Ox 98 O2 Delivery BiPAP/CPAP BiPAP/CPAP Nasal Cannula O2 Flow Rate 97.0 2.0 10/04/16 10/04/16 10/04/16 10/04/16 08:04 08:05 10:32 10:54 Pulse 97 Resp 17 17 Pulse Ox 98 99 99 O2 Delivery Nasal Cannula Nasal Cannula NonRebreather Mask NonRebreather Mask Nasal Cannula O2 Flow Rate 2.0 3.0 15.0 15.0 10/04/16 10/04/16 10/04/16 10/04/16 12:03 12:03 12:08 12:13 Temp 97.3 97.3 Pulse 97 97 97 85 Resp 19 B/P (MAP) 177/110 177/110 177/110 154/103 (120) Pulse Ox 97 O2 Delivery Nasal Cannula O2 Flow Rate 3.0 Intake and Output 10/03/16 10/03/16 10/04/16 15:00 23:00 07:00 Intake Total 1000 ml 950 ml Output Total 350 ml 1700 ml 1200 ml Balance -350 ml -700 ml -250 ml PATRICIA WINTERS MD Oct 04, 2016 13:58
--- NOTE | 2016-10-04 15:42 | CARD ---
APPROVED REPORT EXAM: Two-dimensional and M-mode echocardiogram with Doppler, color Doppler with contrast. Other Information Quality : Technically Limited Rhythm : NSRTechnically limited study due to body habitus. INDICATION Elevated troponin level Echo Enhancing Agent Indication: Endocardial border delineation Agent/Amount Used: Lumason 2mL 2D DIMENSIONS IVSd1.3 (0.7-1.1cm)LVDd5.6 (3.9-5.9cm) PWd1.3 (0.7-1.1cm)LVDs3.5 (2.5-4.0cm) Aortic Valve AoV Peak Zach.133.0cm/sAoV VTI23.1cm AO Peak GR.7.1mmHgLVOT VTI 17.50cm AO Mean GR.3mmHgAVA (VTI)2.63cm2 Mitral Valve MV E Sclfsbvz77.9cm/sMV E Peak Gr.2mmHg MV DECEL [id number] A Gxcqfrys510.2cm/s MV ODQ08mnH/A Ratio0.7 MV A [id number] (PHT)3.44cm2 Tricuspid Valve TR P. Gznqjpyl871st/sRAP [id number] TR Peak Gr.[id number] LEFT VENTRICLE Technically difficult study. The left ventricle is normal size. There is normal left ventricular wall thickness. Left ventricle systolic function is normal. The Ejection Fraction is 50-55%. There is nor mal LV segmental wall motion. Tissue Doppler imaging reveals mild left ventricular diastolic dysfunct ion. Transmitral Doppler flow pattern is Grade I-abnormal relaxation pattern. RIGHT VENTRICLE The right ventricle is normal size. The right ventricular systolic function is normal. ATRIA The left atrium size is normal. The right atrium size is normal. The interatrial septum is not well v isualized. AORTIC VALVE The aortic valve is normal in structure and function. The aortic valve is trileaflet. Doppler and Col or Flow revealed no significant aortic regurgitation. There is no significant aortic valvular stenosi s. MITRAL VALVE The mitral valve is not well visualized. There is no mitral valve stenosis. Doppler and Color Flow re vealed no mitral valve regurgitation noted. TRICUSPID VALVE The tricuspid valve is not well visualized. Doppler and Color Flow revealed trace to mild tricuspid r egurgitation. The PA pressure was estimated at 30 mmHg. There is no tricuspid valve prolapse or veget ation. PULMONIC VALVE The pulmonic valve is not well visualized. Doppler and Color Flow revealed no pulmonic valvular regur gitation. There is no pulmonic valvular stenosis. GREAT VESSELS The aortic root appears normal in size. Pulmonary veins not recorded. Due to poor image quality, the IVC could not be assessed. PERICARDIAL EFFUSION There is no evidence of significant pericardial effusion. Critical Notification Critical Value: No <Conclusion> Technically difficult study. The left ventricle is normal size. Left ventricle systolic function is normal. The Ejection Fraction is 50-55%. There is no significant aortic valvular stenosis. Doppler and Color Flow revealed no significant aortic regurgitation. Doppler and Color Flow revealed no mitral valve regurgitation noted. Doppler and Color Flow revealed trace to mild tricuspid regurgitation. The PA pressure was estimated at 30 mmHg.
--- NOTE | 2016-10-04 17:44 | CARD ---
APPROVED REPORT Procedures. Left heart catheterization. Left ventriculogram. Selective angiogram. The patient is a 51 year old male with known mild coronary artery disease. He was admitted for shortn ess of breath and had a minimal elevation in troponin. Heart catheterization was recommended. Risks a nd benefits were discussed. The patient agreed to proceed. After informed consent was obtained the patient was brought to the heart catheterization lab. The are a of the right femoral artery was prepared in the usual manner with Betadine, sterile draping and loc al anesthetic. An 18-gauge needle was used to enter the right femoral artery, a wire placed and a 6 F rench sheath placed over the wire. A 6 Armenian JR4 and then a JL 5 diagnostic catheter was used to eng age the left coronary system and sequential injections in various usual obtained. A 6 Armenian Williams s right diagnostic catheter was used to engage the right coronary artery system and sequential inject ions in various views were obtained. A pigtail catheter was advanced to the ascending aorta and then the left ventricle. A 30 GONZALEZ left ventriculogram was performed. Pullback pressures were measured. On initial pictures a suggestive lesion in the ostium of a branch vessel of the left circumflex was kimberly ntified. Therefore at this time a 6 Armenian GL5 guiding catheter was used to engage the left system. S equential injections showed that this was a non-significant lesion and no intervention was performed. Catheters removed from the patient. Injection of the sheath showed normal placement. The sheath was removed and sealed with an Angio-Seal product. The patient was moved to the holding area in stable co ndition. Findings. Hemodynamics. LV pressure 156/24, aortic root pressure of 152/98. Coronaries. Left main. The left main had no lesions. Left anterior descending. The left anterior descending was a moderately large vessel. He had mild dis ease in the 15% range. Left circumflex. The left circumflex with moderate size vessel. A branch vessel had an ostial 35% les ion. Right coronary artery. The right coronary was a large dominant vessel. An diffuse mid disease and had mid disease of 10-15%. Left ventriculogram. The left ventricle showed normal left ventricular systolic function and no mitral regurgitation. <Conclusion> No significant coronary artery lesions. Normal left ventricular systolic function.
[2016-10-04] MEDS: ALPRAZolam 0.25 MG TABLET PO PRN (21:00)
[2016-10-04] MEDS: traMADol 50 MG TABLET PO PRN (21:01)
[2016-10-04] MEDS: ATORVASTATIN CALCIUM 20 MG TABLET PO SCH (21:01)
[2016-10-04] MEDS: METOPROLOL TART IMMED RELEASE 25 MG TABLET. PO SCH (21:02)
[2016-10-05 03:15] VITALS: BP 135/81
[2016-10-05 06:03] LABS: BASO % 0 % (0-3); EOS % 0 % (0-3); HEMOGLOBIN 15.7 g/dL (13.0-17.5); LYMPH # 2.3 x10^3/uL (1.0-4.8); LYMPH % 16 % (24-48); MEAN CORPUSCULAR HEMOGLOBIN 31 pg (25-35); MEAN CORPUSCULAR HGB CONC 33 g/dL (31-37); MEAN CORPUSCULAR VOLUME 92 fL (79-100); MONO % 7 % (0-9); NEUT % 76 % (31-73); PLATELET COUNT 253 x10^3/uL (140-400); RED CELL DISTRIBUTION WIDTH 14.8 % (11.5-14.5); WHITE BLOOD COUNT 14.4 x10^3/uL (4.0-11.0)
[2016-10-05 06:31] LABS: CALCIUM 8.9 mg/dL (8.5-10.1); CREATININE 0.8 mg/dL (0.7-1.3); GFR 101.1; POTASSIUM 3.9 mmol/L (3.5-5.1)
[2016-10-05 07:00] VITALS: BP 168/71
[2016-10-05] MEDS: BUDESONIDE 0.5 MG/2 ML NEBU. NEB SCH ×2 (07:17→19:54)
[2016-10-05] MEDS: INSULIN ASPART 300 UNITS/3 ML INSULN.PEN SQ SCH ×3 (08:00→17:00)
[2016-10-05] MEDS: NICOTINE 21MG PATCH. TD SCH (08:52)
[2016-10-05] MEDS: ASPIRIN ENTERIC COATED 81 MG TABLET.DR. PO SCH (08:52)
[2016-10-05] MEDS: amLODIPine BESYLATE 10 MG TABLET PO SCH (08:53)
[2016-10-05] MEDS: VENLAFAXINE 50 MG TABLET. PO SCH ×3 (08:53→21:51)
[2016-10-05] MEDS: LISINOPRIL 40 MG TABLET. PO SCH (08:53)
[2016-10-05] MEDS: busPIRone 10 MG TABLET. PO SCH ×3 (08:54→21:50)
[2016-10-05] MEDS: PANTOPRAZOLE 40 MG TABLET.DR. PO SCH (08:54)
[2016-10-05] MEDS: ALPRAZolam 0.25 MG TABLET PO PRN ×2 (08:54→22:42)
[2016-10-05] MEDS: METOPROLOL TART IMMED RELEASE 25 MG TABLET. PO SCH ×2 (08:54→21:51)
[2016-10-05] MEDS: ALLOPURINOL 100 MG TABLET. PO SCH (08:54)
[2016-10-05] MEDS: CETIRIZINE HCL 10 MG TABLET. PO SCH (08:54)
[2016-10-05] MEDS: FLUTICASONE 50MCG/NASAL SPRAY 16GM BOTTLE. NS SCH (08:57)
--- NOTE | 2016-10-05 10:07 | PDOC ---
PULMONARY PROGRESS NOTES Subjective S/P CATH normal coronaries Vitals Vital Signs Date Time Temp Pulse Resp B/P (MAP) Pulse Ox O2 Delivery O2 Flow Rate FiO2 10/05/16 08:54 60 168/93 10/05/16 07:19 94 Room Air 10/05/16 07:00 98.0 20 4.0 98.0 General: Alert, No acute distress Lungs: Clear Cardiovascular: S1 Abdomen: Soft, Other (obese) Neuro Exam: Alert Extremities: Other (1+edema) Skin: Warm Labs Laboratory Tests Test 10/03/16 11:00 10/03/16 11:57 10/03/16 12:00 10/03/16 12:20 Creatine Kinase 128 U/L (39-308) Troponin I Quantitative 1.926 ng/mL (0.000-0.055) Glucose (Fingerstick) 142 mg/dL (70-99) Heparin Anti-Xa Act, Unfractionated 0.10 IU/mL (0.30-0.70) O2 Saturation 92 % (92-99) Arterial Blood pH 7.39 (7.35-7.45) Arterial Blood pCO2 at Patient Temp 46 mmHg (35-46) Arterial Blood pO2 at Patient Temp 66 mmHg (75-108) Arterial Blood HCO3 27 mmol/L (21-28) Arterial Blood Base Excess 2 mmol/L (-3-3) FiO2 28.0 Test 10/03/16 16:42 10/03/16 20:00 10/03/16 21:13 10/04/16 03:30 Glucose (Fingerstick) 148 mg/dL (70-99) 197 mg/dL (70-99) Heparin Anti-Xa Act, Unfractionated 0.10 IU/mL (0.30-0.70) < 0.10 IU/mL (0.30-0.70) White Blood Count 8.9 x10^3/uL (4.0-11.0) Red Blood Count 5.31 x10^6/uL (4.30-5.70) Hemoglobin 16.3 g/dL (13.0-17.5) Hematocrit 49.8 % (39.0-53.0) Mean Corpuscular Volume 94 fL (79-100) Mean Corpuscular Hemoglobin 31 pg (25-35) Mean Corpuscular Hemoglobin Concent 33 g/dL (31-37) Red Cell Distribution Width 14.8 % (11.5-14.5) Platelet Count 269 x10^3/uL (140-400) Neutrophils (%) (Auto) 93 % (31-73) Lymphocytes (%) (Auto) 5 % (24-48) Monocytes (%) (Auto) 2 % (0-9) Eosinophils (%) (Auto) 0 % (0-3) Basophils (%) (Auto) 0 % (0-3) Neutrophils # (Auto) 8.3 x10^3uL (1.8-7.7) Lymphocytes # (Auto) 0.4 x10^3/uL (1.0-4.8) Monocytes # (Auto) 0.2 x10^3/uL (0.0-1.1) Eosinophils # (Auto) 0.0 x10^3/uL (0.0-0.7) Basophils # (Auto) 0.0 x10^3/uL (0.0-0.2) Segmented Neutrophils % 93 % (35-66) Lymphocytes % 6 % (24-48) Monocytes % 1 % (0-10) Platelet Estimate Adequate (ADEQUATE) Giant Platelets Few Sodium Level 142 mmol/L (136-145) Potassium Level 4.9 mmol/L (3.5-5.1) Chloride Level 105 mmol/L (98-107) Carbon Dioxide Level 32 mmol/L (21-32) Anion Gap 5 (6-14) Blood Urea Nitrogen 12 mg/dL (8-26) Creatinine 0.9 mg/dL (0.7-1.3) Estimated GFR (Cockcroft-Gault) 88.3 Glucose Level 154 mg/dL (70-99) Calcium Level 9.5 mg/dL (8.5-10.1) Test 10/04/16 07:56 10/04/16 10:21 10/04/16 11:52 10/04/16 15:58 Glucose (Fingerstick) 167 mg/dL (70-99) 161 mg/dL (70-99) 163 mg/dL (70-99) Activated Clotting Time 148 sec (92-181) Test 10/04/16 20:55 10/05/16 04:28 Glucose (Fingerstick) 206 mg/dL (70-99) White Blood Count 14.4 x10^3/uL (4.0-11.0) Red Blood Count 5.10 x10^6/uL (4.30-5.70) Hemoglobin 15.7 g/dL (13.0-17.5) Hematocrit 47.0 % (39.0-53.0) Mean Corpuscular Volume 92 fL (79-100) Mean Corpuscular Hemoglobin 31 pg (25-35) Mean Corpuscular Hemoglobin Concent 33 g/dL (31-37) Red Cell Distribution Width 14.8 % (11.5-14.5) Platelet Count 253 x10^3/uL (140-400) Neutrophils (%) (Auto) 76 % (31-73) Lymphocytes (%) (Auto) 16 % (24-48) Monocytes (%) (Auto) 7 % (0-9) Eosinophils (%) (Auto) 0 % (0-3) Basophils (%) (Auto) 0 % (0-3) Neutrophils # (Auto) 11.0 x10^3uL (1.8-7.7) Lymphocytes # (Auto) 2.3 x10^3/uL (1.0-4.8) Monocytes # (Auto) 1.0 x10^3/uL (0.0-1.1) Eosinophils # (Auto) 0.1 x10^3/uL (0.0-0.7) Basophils # (Auto) 0.0 x10^3/uL (0.0-0.2) Sodium Level 142 mmol/L (136-145) Potassium Level 3.9 mmol/L (3.5-5.1) Chloride Level 104 mmol/L (98-107) Carbon Dioxide Level 30 mmol/L (21-32) Anion Gap 8 (6-14) Blood Urea Nitrogen 15 mg/dL (8-26) Creatinine 0.8 mg/dL (0.7-1.3) Estimated GFR (Cockcroft-Gault) 101.1 Glucose Level 101 mg/dL (70-99) Calcium Level 8.9 mg/dL (8.5-10.1) Laboratory Tests Test 10/04/16 10:21 10/04/16 11:52 10/04/16 15:58 10/04/16 20:55 Activated Clotting Time 148 sec (92-181) Glucose (Fingerstick) 161 mg/dL (70-99) 163 mg/dL (70-99) 206 mg/dL (70-99) Test 10/05/16 04:28 White Blood Count 14.4 x10^3/uL (4.0-11.0) Red Blood Count 5.10 x10^6/uL (4.30-5.70) Hemoglobin 15.7 g/dL (13.0-17.5) Hematocrit 47.0 % (39.0-53.0) Mean Corpuscular Volume 92 fL (79-100) Mean Corpuscular Hemoglobin 31 pg (25-35) Mean Corpuscular Hemoglobin Concent 33 g/dL (31-37) Red Cell Distribution Width 14.8 % (11.5-14.5) Platelet Count 253 x10^3/uL (140-400) Neutrophils (%) (Auto) 76 % (31-73) Lymphocytes (%) (Auto) 16 % (24-48) Monocytes (%) (Auto) 7 % (0-9) Eosinophils (%) (Auto) 0 % (0-3) Basophils (%) (Auto) 0 % (0-3) Neutrophils # (Auto) 11.0 x10^3uL (1.8-7.7) Lymphocytes # (Auto) 2.3 x10^3/uL (1.0-4.8) Monocytes # (Auto) 1.0 x10^3/uL (0.0-1.1) Eosinophils # (Auto) 0.1 x10^3/uL (0.0-0.7) Basophils # (Auto) 0.0 x10^3/uL (0.0-0.2) Sodium Level 142 mmol/L (136-145) Potassium Level 3.9 mmol/L (3.5-5.1) Chloride Level 104 mmol/L (98-107) Carbon Dioxide Level 30 mmol/L (21-32) Anion Gap 8 (6-14) Blood Urea Nitrogen 15 mg/dL (8-26) Creatinine 0.8 mg/dL (0.7-1.3) Estimated GFR (Cockcroft-Gault) 101.1 Glucose Level 101 mg/dL (70-99) Calcium Level 8.9 mg/dL (8.5-10.1) Medications Active Scripts Medications Dose Route/Sig Max Daily Dose Days Date Category B-12 (Cyanocobalamin (Vitamin B-12)) 1,000 Mcg Tablet.er 1,000 Mcg PO DAILY 10/03/16 Reported Aspir 81 (Aspirin) 81 Mg Tablet.dr 1 Tab PO DAILY 10/03/16 Reported Afrin (Oxymetazoline Hcl) 15 Ml Mist 15 Ml NS PRN Q6HRS PRN 10/03/16 Reported NITROGLYCERIN SubLingual (Nitroglycerin) 0.4 Mg Tab.subl 0.4 Mg SL PRN Q5MIN PRN 10/03/16 Reported Lisinopril 30 Mg Tablet 30 Mg PO DAILY 10/03/16 Reported Buspirone Hcl 10 Mg Tablet 10 Mg PO TID 10/03/16 Reported Venlafaxine Hcl 75 Mg Tablet 150 Mg PO DAILY 10/03/16 Reported Viagra (Sildenafil Citrate) 50 Mg Tablet 1 Tab PO UD 10/03/16 Reported Omeprazole 40 Mg Capsule.dr 40 Mg PO DAILY 10/03/16 Reported NICODERM CQ 21mg (Nicotine) 1 Each Patch.td24 1 Patch TD DAILY 10/03/16 Reported Metformin Hcl 500 Mg Tablet 500 Mg PO BIDWMEALS 10/03/16 Reported Loratadine 10 Mg Tablet 10 Mg PO PRN DAILY PRN 10/03/16 Reported Fluticasone Propionate Nasal [place] (Fluticasone Propionate) 16 Gm [place].susp 2 [place] NS DAILY 10/03/16 Reported Cetirizine Hcl 10 Mg Tablet 1 Tab PO DAILY 10/03/16 Reported Symbicort 80-4.5 Mcg Inhaler (Budesonide/Formoterol Fumarate) 10.2 Gm Hfa.aer.ad 2 Puff IH BID 10/03/16 Reported Allopurinol 100 Mg Tablet 100 Mg PO DAILY 10/03/16 Reported Combivent Respimat Inhal (Ipratropium/Albuterol Sulfate) 4 Gm Aer.w.adap 2 Inh IH PRN QID PRN 10/03/16 Reported Impression . NSTEMI: ABG adequate Accelerated HTN, improved Arrhythmia: SVT, junctional, SB Syncope KIRSTIE Morbid obesity Heavy tobaccoism s/p cath Plan . 1. stable pulmonary status 2. Normal coronaries by cath, normal EF 3. BIPAP,qhs 4. BP f/u per cardiology d/w GRISEL cortez with home pulmonary garcia YAKOV SANTIAGO MD Oct 05, 2016 10:07
[2016-10-05 11:00] VITALS: BP_SYST 151; BP_SYST 165; BP_DIAS 100; BP_DIAS 108
--- NOTE | 2016-10-05 11:41 | PDOC ---
CARDIO Progress Notes Date and Time Date of Service 10/05/2016 Time of Evaluation 1130 Subjective Subjective: No Chest Pain, No shortness of breath, No Palpitations, No Dizziness Vitals Vitals Vital Signs Date Time Temp Pulse Resp B/P (MAP) Pulse Ox O2 Delivery O2 Flow Rate FiO2 10/05/16 08:54 60 168/93 10/05/16 08:05 Nasal Cannula 4.0 10/05/16 07:19 94 10/05/16 07:00 98.0 20 98.0 Weight Weight [ ] Input and Output Intake and Output Intake and Output 10/05/16 07:00 Intake Total 750 ml Output Total 1150 ml Balance -400 ml Intake Oral 750 ml Output Urine Total 1150 ml # Voids 6 # Bowel Movements 1 Laboratory Labs Laboratory Tests Test 10/04/16 11:52 10/04/16 15:58 10/04/16 20:55 10/05/16 04:28 Glucose (Fingerstick) 161 mg/dL (70-99) 163 mg/dL (70-99) 206 mg/dL (70-99) White Blood Count 14.4 x10^3/uL (4.0-11.0) Red Blood Count 5.10 x10^6/uL (4.30-5.70) Hemoglobin 15.7 g/dL (13.0-17.5) Hematocrit 47.0 % (39.0-53.0) Mean Corpuscular Volume 92 fL (79-100) Mean Corpuscular Hemoglobin 31 pg (25-35) Mean Corpuscular Hemoglobin Concent 33 g/dL (31-37) Red Cell Distribution Width 14.8 % (11.5-14.5) Platelet Count 253 x10^3/uL (140-400) Neutrophils (%) (Auto) 76 % (31-73) Lymphocytes (%) (Auto) 16 % (24-48) Monocytes (%) (Auto) 7 % (0-9) Eosinophils (%) (Auto) 0 % (0-3) Basophils (%) (Auto) 0 % (0-3) Neutrophils # (Auto) 11.0 x10^3uL (1.8-7.7) Lymphocytes # (Auto) 2.3 x10^3/uL (1.0-4.8) Monocytes # (Auto) 1.0 x10^3/uL (0.0-1.1) Eosinophils # (Auto) 0.1 x10^3/uL (0.0-0.7) Basophils # (Auto) 0.0 x10^3/uL (0.0-0.2) Sodium Level 142 mmol/L (136-145) Potassium Level 3.9 mmol/L (3.5-5.1) Chloride Level 104 mmol/L (98-107) Carbon Dioxide Level 30 mmol/L (21-32) Anion Gap 8 (6-14) Blood Urea Nitrogen 15 mg/dL (8-26) Creatinine 0.8 mg/dL (0.7-1.3) Estimated GFR (Cockcroft-Gault) 101.1 Glucose Level 101 mg/dL (70-99) Calcium Level 8.9 mg/dL (8.5-10.1) Physical Exam HEENT: Neck Supple W Full Motion Chest: Symmetric LUNGS: Other (basilar crackles) Heart: S1S2, RRR (SR) Abdomen: Soft N/T, Other (obese) Extremities: No Calf Tenderness Neurology: alert, oriented, follow commands Assessment Assessment 1. NSTEMI: [facility] no significant coronary lesions, EF normal, likely induced by arrhythmia/syncope/fall/HTN 2. Accelerated HTN: labile 3. 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 Another episode of bradycardia today while awake 4. Syncope with fall: due to arrhythmia 5. DM2/HLP 6. COPD/KIRSTIE/heavy tobaccoism 7. Morbid obesity: BMI 50 8. Heavy tobaccoism Recommendations 1. Discussed with pt possibility of PPM placement. Unable to contact [place] for event monitor. Will discuss with primary process designer 2. Continue with ASA. 3. Bipap, per pulmonary 4. Norvasc, lisinopril, start on hydralazine 5. No QT prolonging meds or AV nate blocking agent at this time. 6. Lifestyle modifications, including compliance with bipap and smoking cessation. EDWIN COWAN APRN Oct 05, 2016 11:41
[2016-10-05] MEDS ORDERED: METO25TA4 PO (12:18)
[2016-10-05] MEDS ORDERED: LISI40TA PO (12:18)
[2016-10-05] MEDS ORDERED: ATOR20TA58 PO (12:18)
[2016-10-05] MEDS ORDERED: AMLO10TA2 PO (12:18)
[2016-10-05] MEDS ORDERED: hydrALAZINE 25 MG TABLET PO SCH (14:00)
--- NOTE | 2016-10-05 14:20 | PDOC3 ---
Discharge Summary [facility] Date of Admission: Oct 03, 2016 Discharge Date: Oct 05, 2016 Admitting Diagnosis syncope, possible 2/2 arrythmia Arrythmia, svt, junctional need to rule out sick sinus syndrome NSTMEI ruled out, elevated troponin but no chest pain KIRSTIE copd tobaccoism morbid obesity htn dm2 anxiety Problems: CONSULTS card pulm Brief Hospital Course 51yo M, with copd, smoking, htn, dm2, was sent from [place] for syncope. pt is a poor historian. He said he has not been using his CPAP with mask problem , and kept falling sleep and yawning when i talked to him. He said he was with his gf yesterday, standing on a escalator then felt lightheaded and syncoped, but pt could not really tell how it happened, denies chest pain, sob. He syncoped for 1 sec, and then woke up , felt ok, then left. But he was worrying about his glucose, so they went to a restaurant for meal, his gf checked his glucose was 129, but BP was 80s then went to [place]. in [place], was found SVT, elevated troponin and then sent here. overnight, his HR fluctuated to 120s and 40s when he slept, and troponin is >2. denies heart problem, very anxious Pt was found mild elevated troponin, denies chest pain, echo normal, cath normal on CPAP here , tolerated well. dc home with HTN meds, and fu with pulm for CPAP. also need holter monitor, should fu with [place] card for it. passed 6min walk dc time 35min. General: Alert, Oriented X3, Cooperative, No acute distress Heart: Regular rate (SR), Normal S1, Normal S2, Other (2/6 systolic murmur to LLS border) Lungs: Clear Abdomen: Soft, No tenderness, Other (truncal obesity) Extremities: No cyanosis, No edema Skin: No breakdown, No significant lesion Patient History: FH: CABG (coronary artery bypass surgery) G8 BROTHER FH: CHF (congestive heart failure) 32 MOTHER Problems: Disposition home CONDITION AT DISCHARGE: Improved Diet cardiac Scheduled Allopurinol (Allopurinol), 100 MG PO DAILY, (Reported) Amlodipine Besylate (Amlodipine Besylate), 10 MG PO DAILY Aspirin (Aspir 81), 1 TAB PO DAILY, (Reported) Atorvastatin Calcium (Atorvastatin Calcium), 20 MG PO QHS Budesonide/Formoterol Fumarate (Symbicort 80-4.5 Mcg Inhaler), 2 PUFF IH BID, ( Reported) Buspirone Hcl (Buspirone Hcl), 10 MG PO TID, (Reported) Cetirizine Hcl (Cetirizine Hcl), 1 TAB PO DAILY, (Reported) Cyanocobalamin (Vitamin B-12) (B-12), 1,000 MCG PO DAILY, (Reported) Fluticasone Propionate (Fluticasone Propionate Nasal [place]), 2 SPRAY NS DAILY, ( Reported) Lisinopril (Lisinopril), 40 MG PO DAILY Metformin Hcl (Metformin Hcl), 500 MG PO BIDWMEALS, (Reported) Metoprolol Tartrate (Metoprolol Tartrate), 25 MG PO BID Nicotine (NICODERM CQ 21mg), 1 PATCH TD DAILY, (Reported) Omeprazole (Omeprazole), 40 MG PO DAILY, (Reported) Venlafaxine Hcl (Venlafaxine Hcl), 150 MG PO DAILY, (Reported) Scheduled PRN Ipratropium/Albuterol Sulfate (Combivent Respimat Inhal), 2 INH IH PRN QID PRN for SHORTNESS OF BREATH, (Reported) Loratadine (Loratadine), 10 MG PO PRN DAILY PRN for ALLERGIES, (Reported) Nitroglycerin (NITROGLYCERIN SubLingual), 0.4 MG SL PRN Q5MIN PRN for CHEST PAIN , (Reported) Oxymetazoline Hcl (Afrin), 15 ML NS PRN Q6HRS PRN for ALLERGIES, (Reported) Discontinued Medications Lisinopril (Lisinopril), 30 MG PO DAILY, (Reported) Sildenafil Citrate (Viagra), 1 TAB PO UD, (Reported) Follow Up pcp , pau jones in 2 weeks PATRICIA WINTERS MD Oct 05, 2016 14:20
[2016-10-05 15:00] VITALS: BP 148/94
[2016-10-05 19:40] VITALS: BP 163/84
[2016-10-05] MEDS: ALBUTEROL SULFATE 2.5 MG/3 ML NEBU. NEB PRN (19:54)
[2016-10-05] MEDS: ATORVASTATIN CALCIUM 20 MG TABLET PO SCH (21:50)
[2016-10-05] MEDS: traMADol 50 MG TABLET PO PRN (21:53)
[2016-10-05 23:40] VITALS: BP 151/92
[2016-10-06 03:55] VITALS: BP 147/86
[2016-10-06 07:30] VITALS: BP 151/103
[2016-10-06] MEDS: BUDESONIDE 0.5 MG/2 ML NEBU. NEB SCH ×2 (07:30→19:17)
[2016-10-06] MEDS: ALBUTEROL SULFATE 2.5 MG/3 ML NEBU. NEB PRN (07:38)
[2016-10-06] MEDS: INSULIN ASPART 300 UNITS/3 ML INSULN.PEN SQ SCH ×3 (08:00→16:42)
[2016-10-06] MEDS: ASPIRIN ENTERIC COATED 81 MG TABLET.DR. PO SCH (09:00)
[2016-10-06] MEDS: VENLAFAXINE 50 MG TABLET. PO SCH ×3 (09:00→20:34)
[2016-10-06] MEDS: FLUTICASONE 50MCG/NASAL SPRAY 16GM BOTTLE. NS SCH (09:00)
[2016-10-06] MEDS: busPIRone 10 MG TABLET. PO SCH ×3 (09:00→20:35)
[2016-10-06] MEDS: PANTOPRAZOLE 40 MG TABLET.DR. PO SCH (09:00)
[2016-10-06] MEDS: METOPROLOL TART IMMED RELEASE 25 MG TABLET. PO SCH ×2 (09:01→20:35)
[2016-10-06] MEDS: amLODIPine BESYLATE 10 MG TABLET PO SCH (09:01)
[2016-10-06] MEDS: LISINOPRIL 40 MG TABLET. PO SCH (09:01)
[2016-10-06] MEDS: ALLOPURINOL 100 MG TABLET. PO SCH (09:01)
[2016-10-06] MEDS: CETIRIZINE HCL 10 MG TABLET. PO SCH (09:01)
[2016-10-06] MEDS: NICOTINE 21MG PATCH. TD SCH (09:02)
[2016-10-06 11:30] VITALS: BP 115/81
--- NOTE | 2016-10-06 12:33 | PDOC ---
PULMONARY PROGRESS NOTES Subjective S/P CATH normal coronaries Vitals Vital Signs Date Time Temp Pulse Resp B/P (MAP) Pulse Ox O2 Delivery O2 Flow Rate FiO2 10/06/16 11:30 97.7 68 18 115/81 (92) 95 Room Air 97.7 10/05/16 15:00 4.0 General: Alert, No acute distress Lungs: Clear Cardiovascular: S1 Abdomen: Soft, Other (obese) Neuro Exam: Alert Extremities: Other (1+edema) Skin: Warm Labs Laboratory Tests Test 10/04/16 15:58 10/04/16 20:55 10/05/16 04:28 10/05/16 12:00 Glucose (Fingerstick) 163 mg/dL (70-99) 206 mg/dL (70-99) 134 mg/dL (70-99) White Blood Count 14.4 x10^3/uL (4.0-11.0) Red Blood Count 5.10 x10^6/uL (4.30-5.70) Hemoglobin 15.7 g/dL (13.0-17.5) Hematocrit 47.0 % (39.0-53.0) Mean Corpuscular Volume 92 fL (79-100) Mean Corpuscular Hemoglobin 31 pg (25-35) Mean Corpuscular Hemoglobin Concent 33 g/dL (31-37) Red Cell Distribution Width 14.8 % (11.5-14.5) Platelet Count 253 x10^3/uL (140-400) Neutrophils (%) (Auto) 76 % (31-73) Lymphocytes (%) (Auto) 16 % (24-48) Monocytes (%) (Auto) 7 % (0-9) Eosinophils (%) (Auto) 0 % (0-3) Basophils (%) (Auto) 0 % (0-3) Neutrophils # (Auto) 11.0 x10^3uL (1.8-7.7) Lymphocytes # (Auto) 2.3 x10^3/uL (1.0-4.8) Monocytes # (Auto) 1.0 x10^3/uL (0.0-1.1) Eosinophils # (Auto) 0.1 x10^3/uL (0.0-0.7) Basophils # (Auto) 0.0 x10^3/uL (0.0-0.2) Sodium Level 142 mmol/L (136-145) Potassium Level 3.9 mmol/L (3.5-5.1) Chloride Level 104 mmol/L (98-107) Carbon Dioxide Level 30 mmol/L (21-32) Anion Gap 8 (6-14) Blood Urea Nitrogen 15 mg/dL (8-26) Creatinine 0.8 mg/dL (0.7-1.3) Estimated GFR (Cockcroft-Gault) 101.1 Glucose Level 101 mg/dL (70-99) Calcium Level 8.9 mg/dL (8.5-10.1) Test 10/05/16 16:58 10/05/16 21:35 10/06/16 08:02 10/06/16 11:46 Glucose (Fingerstick) 135 mg/dL (70-99) 128 mg/dL (70-99) 124 mg/dL (70-99) 101 mg/dL (70-99) Laboratory Tests Test 10/05/16 16:58 10/05/16 21:35 10/06/16 08:02 10/06/16 11:46 Glucose (Fingerstick) 135 mg/dL (70-99) 128 mg/dL (70-99) 124 mg/dL (70-99) 101 mg/dL (70-99) Medications Active Scripts Medications Dose Route/Sig Max Daily Dose Days Date Category B-12 (Cyanocobalamin (Vitamin B-12)) 1,000 Mcg Tablet.er 1,000 Mcg PO DAILY 10/03/16 Reported Aspir 81 (Aspirin) 81 Mg Tablet.dr 1 Tab PO DAILY 10/03/16 Reported Afrin (Oxymetazoline Hcl) 15 Ml Mist 15 Ml NS PRN Q6HRS PRN 10/03/16 Reported NITROGLYCERIN SubLingual (Nitroglycerin) 0.4 Mg Tab.subl 0.4 Mg SL PRN Q5MIN PRN 10/03/16 Reported Lisinopril 30 Mg Tablet 30 Mg PO DAILY 10/03/16 Reported Buspirone Hcl 10 Mg Tablet 10 Mg PO TID 10/03/16 Reported Venlafaxine Hcl 75 Mg Tablet 150 Mg PO DAILY 10/03/16 Reported Viagra (Sildenafil Citrate) 50 Mg Tablet 1 Tab PO UD 10/03/16 Reported Omeprazole 40 Mg Capsule.dr 40 Mg PO DAILY 10/03/16 Reported NICODERM CQ 21mg (Nicotine) 1 Each Patch.td24 1 Patch TD DAILY 10/03/16 Reported Metformin Hcl 500 Mg Tablet 500 Mg PO BIDWMEALS 10/03/16 Reported Loratadine 10 Mg Tablet 10 Mg PO PRN DAILY PRN 10/03/16 Reported Fluticasone Propionate Nasal [place] (Fluticasone Propionate) 16 Gm Abrams.susp 2 Abrams NS DAILY 10/03/16 Reported Cetirizine Hcl 10 Mg Tablet 1 Tab PO DAILY 10/03/16 Reported Symbicort 80-4.5 Mcg Inhaler (Budesonide/Formoterol Fumarate) 10.2 Gm Hfa.aer.ad 2 Puff IH BID 10/03/16 Reported Allopurinol 100 Mg Tablet 100 Mg PO DAILY 10/03/16 Reported Combivent Respimat Inhal (Ipratropium/Albuterol Sulfate) 4 Gm Aer.w.adap 2 Inh IH PRN QID PRN 10/03/16 Reported Impression . NSTEMI: ABG adequate Accelerated HTN, improved Arrhythmia: SVT, junctional, SB Syncope KIRSTIE Morbid obesity Heavy tobaccoism s/p cath Plan . 1. stable pulmonary status 2. Normal coronaries by cath, normal EF 3. BIPAP,qhs 4. BP f/u per cardiology 5. ? need for pacemaker ok with home pulmonary garcia YAKOV SANTIAGO MD Oct 06, 2016 12:33
--- NOTE | 2016-10-06 14:15 | PDOC ---
PROGRESS NOTES Chief Complaint Chief Complaint syncope, possible 2/2 arrythmia Arrythmia, svt, junctional need to rule out sick sinus syndrome NSTMEI with elevated troponin but no chest pain KIRSTIE copd tobaccoism morbid obesity htn dm2 anxiety plan: pulm, card consult TTE, MAY need PPM? Cont CPAP, albuterol prn on heparin drip, need cath, but allergic to cath contrast before, prednisone prep today as per sx cont home meds, but hold veagra Hold metformin, add ssi xanax prn cath NEG close watch BP PT anxious about PPM, will cont monitor rhythm overnight which is better, dc tmr History of Present Illness History of Present Illness pt feels better today, sleep better with cpap on BP still high cath neg high BP Vitals Vitals Vital Signs Date Time Temp Pulse Resp B/P (MAP) Pulse Ox O2 Delivery O2 Flow Rate FiO2 10/06/16 11:30 97.7 68 18 115/81 (92) 95 Room Air 97.7 10/05/16 15:00 4.0 Physical Exam General: Alert, Oriented X3, Cooperative, No acute distress Heart: Regular rate (SR), Normal S1, Normal S2, Other (2/6 systolic murmur to LLS border) Lungs: Clear Abdomen: Soft, No tenderness, Other (truncal obesity) Extremities: No cyanosis, No edema Skin: No breakdown, No significant lesion Labs LABS Laboratory Tests Test 10/05/16 16:58 10/05/16 21:35 10/06/16 08:02 10/06/16 11:46 Glucose (Fingerstick) 135 mg/dL (70-99) 128 mg/dL (70-99) 124 mg/dL (70-99) 101 mg/dL (70-99) Review of Systems Review of Systems no fever, chills, sob or chest pain Comment Review of Relevant I have reviewed the following items lena (where applicable) has been applied. Labs Laboratory Tests Test 10/04/16 15:58 10/04/16 20:55 10/05/16 04:28 10/05/16 12:00 Glucose (Fingerstick) 163 mg/dL (70-99) 206 mg/dL (70-99) 134 mg/dL (70-99) White Blood Count 14.4 x10^3/uL (4.0-11.0) Red Blood Count 5.10 x10^6/uL (4.30-5.70) Hemoglobin 15.7 g/dL (13.0-17.5) Hematocrit 47.0 % (39.0-53.0) Mean Corpuscular Volume 92 fL (79-100) Mean Corpuscular Hemoglobin 31 pg (25-35) Mean Corpuscular Hemoglobin Concent 33 g/dL (31-37) Red Cell Distribution Width 14.8 % (11.5-14.5) Platelet Count 253 x10^3/uL (140-400) Neutrophils (%) (Auto) 76 % (31-73) Lymphocytes (%) (Auto) 16 % (24-48) Monocytes (%) (Auto) 7 % (0-9) Eosinophils (%) (Auto) 0 % (0-3) Basophils (%) (Auto) 0 % (0-3) Neutrophils # (Auto) 11.0 x10^3uL (1.8-7.7) Lymphocytes # (Auto) 2.3 x10^3/uL (1.0-4.8) Monocytes # (Auto) 1.0 x10^3/uL (0.0-1.1) Eosinophils # (Auto) 0.1 x10^3/uL (0.0-0.7) Basophils # (Auto) 0.0 x10^3/uL (0.0-0.2) Sodium Level 142 mmol/L (136-145) Potassium Level 3.9 mmol/L (3.5-5.1) Chloride Level 104 mmol/L (98-107) Carbon Dioxide Level 30 mmol/L (21-32) Anion Gap 8 (6-14) Blood Urea Nitrogen 15 mg/dL (8-26) Creatinine 0.8 mg/dL (0.7-1.3) Estimated GFR (Cockcroft-Gault) 101.1 Glucose Level 101 mg/dL (70-99) Calcium Level 8.9 mg/dL (8.5-10.1) Test 10/05/16 16:58 10/05/16 21:35 10/06/16 08:02 10/06/16 11:46 Glucose (Fingerstick) 135 mg/dL (70-99) 128 mg/dL (70-99) 124 mg/dL (70-99) 101 mg/dL (70-99) Laboratory Tests Test 10/05/16 16:58 10/05/16 21:35 10/06/16 08:02 10/06/16 11:46 Glucose (Fingerstick) 135 mg/dL (70-99) 128 mg/dL (70-99) 124 mg/dL (70-99) 101 mg/dL (70-99) Medications Current Medications Heparin Sodium/ Dextrose 500 ml @ 0 mls/hr CONT PRN IV SEE I/O RECORD Last administered on 10/03/16 22:15; Start 10/03/16 at 06:00; Stop 10/05/16 at 11:27 ; Status DC Heparin Sodium (Porcine) (Heparin Sodium) 4,100 unit PRN Q6HRS PRN IV FOR UFH LEVEL LESS THAN 0.2 Last administered on 10/04/16 05:00; Start 10/03/16 at 06: 00; Stop 10/05/16 at 11:28; Status DC Info (Anti-Coagulation Monitoring By Pharmacy) 1 each PRN DAILY PRN MC SEE COMMENTS Last administered on 10/03/16 05:54; Start 10/03/16 at 06:00; Stop at 11:28; Status DC Hydralazine HCl (Apresoline) 10 mg PRN Q4HRS PRN IVP ELEVATED BP, SEE COMMENTS Last administered on 10/03/16 08:37; Start 10/03/16 at 08:30; Stop 10/03/16 at 09:18; Status DC Lisinopril (Prinivil) 40 mg DAILY PO Last administered on 10/06/16 09:01; Start 10/03/16 at 09:00 Acetaminophen (Tylenol) 650 mg PRN Q6HRS PRN PO FEVER; Start 10/03/16 at 09:15 Ondansetron HCl (Zofran) 4 mg PRN Q6HRS PRN IV NAUSEA/VOMITING; Start 10/03/16 at 09:15 Morphine Sulfate 2 mg PRN Q2HR PRN IV PAIN; Start 10/03/16 at 09:15 Tramadol HCl (Ultram) 50 mg PRN Q6HRS PRN PO PAIN Last administered on 21:53; Start 10/03/16 at 09:15 Hydralazine HCl (Apresoline) 10 mg PRN Q4HRS PRN IVP ELEVATED BP, SEE COMMENTS Last administered on 10/04/16 03:51; Start 10/03/16 at 09:15 Docusate Sodium (Colace) 100 mg PRN DAILY PRN PO CONSTIPATION; Start 10/03/16 at 09:15 Alprazolam (Xanax) 0.25 mg PRN DAILY PRN PO ANXIETY / AGITATION Last administered on 10/05/16 08:54; Start 10/03/16 at 09:15; Stop 10/05/16 at 22:01 ; Status DC Amlodipine Besylate (Norvasc) 10 mg DAILY PO Last administered on 10/06/16 09: 01; Start 10/03/16 at 10:00 Sulfur Hexafluoride Microspheres (Lumason) 25 mg STK-MED ONCE IVP ; Start at 10:27; Stop 10/03/16 at 10:28; Status DC Allopurinol (Zyloprim) 100 mg DAILY PO Last administered on 10/06/16 09:01; Start 10/03/16 at 11:00 Aspirin (Ecotrin) 81 mg DAILY PO Last administered on 10/06/16 09:00; Start at 11:00 Buspirone HCl (Buspar) 10 mg TID PO Last administered on 10/06/16 09:00; Start 10/03/16 at 14:00 Cetirizine HCl (ZyrTEC) 10 mg DAILY PO Last administered on 10/06/16 09:01; Start 10/03/16 at 11:00 Fluticasone Propionate (Flonase) 2 spray DAILY NS Last administered on 09:00; Start 10/04/16 at 09:00 Nicotine (Nicoderm Cq 21mg) 1 patch DAILY TD ; Start 10/04/16 at 09:00; Stop at 09:00; Status DC Nitroglycerin (Nitrostat) 0.4 mg PRN Q5MIN PRN SL CHEST PAIN; Start 10/03/16 at 10:45; Stop 10/06/16 at 09:14; Status DC Venlafaxine HCl (Effexor) 50 mg TID PO Last administered on 10/06/16 09:00; Start 10/03/16 at 11:00 Non-Formulary Medication 2 puff BID IH ; Start 10/03/16 at 21:00; Status UNV Non-Formulary Medication 2 inh PRN QID PRN IH SHORTNESS OF BREATH; Start at 10:45; Status UNV Non-Formulary Medication 10 mg PRN DAILY PRN PO ALLERGIES; Start 10/03/16 at 10 :45; Status UNV Pantoprazole Sodium (Protonix) 40 mg DAILYAC PO Last administered on 10/06/16 09:00; Start 10/03/16 at 11:00 Albuterol Sulfate (Ventolin Neb Soln) 2.5 mg PRN QID PRN NEB SHORTNESS OF BREATH Last administered on 10/06/16 07:38; Start 10/03/16 at 11:00 Budesonide (Pulmicort) 0.5 mg RTBID NEB ; Start 10/03/16 at 20:00; Status UNV Budesonide (Pulmicort) 0.5 mg RTBID NEB Last administered on 10/06/16 07:30; Start 10/03/16 at 11:00 Albuterol Sulfate (Ventolin Neb Soln) 2.5 mg RTQID NEB Last administered on 12:12; Start 10/03/16 at 12:00; Stop 10/03/16 at 13:13; Status DC Sulfur Hexafluoride Microspheres (Lumason) 25 mg 1X ONCE IVP Last administered on 10/03/16 10:55; Start 10/03/16 at 11:00; Stop 10/03/16 at 11:01 ; Status DC Nicotine (Nicoderm Cq 21mg) 1 patch DAILY TD Last administered on 10/06/16 09: 02; Start 10/03/16 at 11:45 Insulin Aspart (NovoLOG) 0-9 UNITS TIDWMEALS SQ Last administered on 10/04/16 17:24; Start 10/03/16 at 12:00 Dextrose (Dextrose 50%-Water Syringe) 12.5 gm PRN Q15MIN PRN IV SEE COMMENTS; Start 10/03/16 at 12:00 Famotidine (Pepcid) 20 mg BID PO Last administered on 10/03/16 21:47; Start at 12:45; Stop 10/03/16 at 22:00; Status DC Diphenhydramine HCl (Benadryl) 50 mg 1X ONCE PO Last administered on 06:37; Start 10/04/16 at 07:00; Stop 10/04/16 at 07:01; Status DC Famotidine (Pepcid) 40 mg 1X ONCE PO Last administered on 10/04/16 06:39; Start 10/04/16 at 07:00; Stop 10/04/16 at 07:01; Status DC Prednisone (Prednisone) 50 mg Q6HRS PO Last administered on 10/04/16 06:37; Start 10/03/16 at 18:00; Stop 10/04/16 at 08:00; Status DC Atorvastatin Calcium (Lipitor) 20 mg QHS PO Last administered on 10/05/16 21: 50; Start 10/03/16 at 21:00 Labetalol HCl (Normodyne) 20 mg 1X ONCE IVP Last administered on 10/03/16 15: 58; Start 10/03/16 at 16:00; Stop 10/03/16 at 16:01; Status DC Labetalol HCl (Normodyne) 20 mg PRN Q2HR PRN IVP HYPERTENSION, SEE COMMENTS; Start 10/03/16 at 16:30 Metoprolol Tartrate (Lopressor) 5 mg Q6HRS IVP Last administered on 10/04/16 12:08; Start 10/04/16 at 00:00; Stop 10/04/16 at 16:51; Status DC Metoprolol Tartrate (Lopressor) 5 mg 1X ONCE IVP ; Start 10/03/16 at 19:45; Stop 10/03/16 at 19:46; Status DC Lidocaine HCl 20 ml STK-MED ONCE .ROUTE ; Start 10/04/16 at 08:43; Stop at 08:44; Status DC Iohexol (Omnipaque 350 Mg/ml) 100 ml STK-MED ONCE .ROUTE ; Start 10/04/16 at 08: 43; Stop 10/04/16 at 08:44; Status DC Heparin Sodium/ Sodium Chloride 1,000 ml @ As Directed STK-MED ONCE .ROUTE ; Start 10/04/16 at 08:43; Stop 10/04/16 at 08:44; Status DC Heparin Sodium/ Sodium Chloride 1,000 unit 1X ONCE IART Last administered on 10:30; Start 10/04/16 at 09:30; Stop 10/04/16 at 09:31; Status DC Midazolam HCl (Versed) 2 mg 1X ONCE IV Last administered on 10/04/16 10:31; Start 10/04/16 at 09:30; Stop 10/04/16 at 09:31; Status DC Fentanyl Citrate (Fentanyl 2ml Vial) 100 mcg 1X ONCE IV Last administered on 10:32; Start 10/04/16 at 09:30; Stop 10/04/16 at 09:31; Status DC Iohexol (Omnipaque 300 Mg/ml) 100 ml 1X ONCE IART Last administered on 10:32; Start 10/04/16 at 09:30; Stop 10/04/16 at 09:31; Status DC Lidocaine HCl 20 ml 1X ONCE IJ Last administered on 10/04/16 10:32; Start at 09:30; Stop 10/04/16 at 09:31; Status DC Info (Do NOT chart on this entry -- for MONITORING) 1 each PRN DAILY PRN MC SEE COMMENTS; Start 10/04/16 at 09:30; Stop 10/06/16 at 09:29; Status DC Methylprednisolone Sodium Succinate (SOLU-Medrol 125MG VIAL) 125 mg STK-MED ONCE .ROUTE ; Start 10/04/16 at 09:27; Stop 10/04/16 at 09:28; Status DC Methylprednisolone Sodium Succinate (SOLU-Medrol 125MG VIAL) 125 mg 1X ONCE IV ; Start 10/04/16 at 09:45; Stop 10/04/16 at 09:45; Status DC Heparin Sodium/ Sodium Chloride 500 ml @ As Directed STK-MED ONCE .ROUTE ; Start 10/04/16 at 09:56; Stop 10/04/16 at 09:57; Status DC Midazolam HCl (Versed) 2 mg STK-MED ONCE .ROUTE ; Start 10/04/16 at 10:16; Stop 10/04/16 at 10:17; Status DC Iohexol (Omnipaque 350 Mg/ml) 100 ml STK-MED ONCE .ROUTE ; Start 10/04/16 at 10: 37; Stop 10/04/16 at 10:38; Status DC Bivalirudin (Angiomax) 250 mg STK-MED ONCE IV ; Start 10/04/16 at 10:37; Stop at 10:38; Status DC Bivalirudin (Angiomax) 250 mg 1X ONCE IV Last administered on 10/04/16 10:55 ; Start 10/04/16 at 11:00; Stop 10/04/16 at 11:01; Status DC Aspirin (Robinson Aspirin) 325 mg 1X ONCE PO ; Start 10/04/16 at 11:00; Stop 10/04 at 11:01; Status DC Sodium Chloride (Normal Saline Flush) 3 ml QSHIFT PRN IV AFTER MEDS AND BLOOD DRAWS; Start 10/04/16 at 11:15 Sodium Chloride 1,000 ml @ 75 mls/hr [id number] IV Last administered on 12:08; Start 10/04/16 at 11:01; Stop 10/04/16 at 19:00; Status DC Nitroglycerin (Nitrostat) 0.4 mg PRN Q5MIN PRN SL CHEST PAIN; Start 10/04/16 at 11:15 Metoprolol Tartrate (Lopressor) 25 mg BID PO Last administered on 10/06/16 09: 01; Start 10/04/16 at 21:00 Hydralazine HCl (Apresoline) 25 mg TID PO ; Start 10/05/16 at 14:00; Stop at 14:14; Status DC Hydralazine HCl (Apresoline) 50 mg TID PO Last administered on 10/06/16 09:00 ; Start 10/05/16 at 14:30 Alprazolam (Xanax) 0.25 mg PRN TID PRN PO ANXIETY / AGITATION Last administered on 10/05/16 22:42; Start 10/05/16 at 22:00 Active Scripts Active Metoprolol Tartrate 25 Mg Tablet 25 Mg PO BID 30 Days Lisinopril 40 Mg Tablet 40 Mg PO DAILY 30 Days Atorvastatin Calcium 20 Mg Tablet 20 Mg PO QHS 30 Days Amlodipine Besylate 10 Mg Tablet 10 Mg PO DAILY 30 Days Reported B-12 (Cyanocobalamin (Vitamin B-12)) 1,000 Mcg Tablet.er 1,000 Mcg PO DAILY Aspir 81 (Aspirin) 81 Mg Tablet.dr 1 Tab PO DAILY Afrin (Oxymetazoline Hcl) 15 Ml Mist 15 Ml NS PRN Q6HRS PRN NITROGLYCERIN SubLingual (Nitroglycerin) 0.4 Mg Tab.subl 0.4 Mg SL PRN Q5MIN PRN Buspirone Hcl 10 Mg Tablet 10 Mg PO TID Venlafaxine Hcl 75 Mg Tablet 150 Mg PO DAILY Omeprazole 40 Mg Capsule.dr 40 Mg PO DAILY NICODERM CQ 21mg (Nicotine) 1 Each Patch.td24 1 Patch TD DAILY Metformin Hcl 500 Mg Tablet 500 Mg PO BIDWMEALS Loratadine 10 Mg Tablet 10 Mg PO PRN DAILY PRN Fluticasone Propionate Nasal [place] (Fluticasone Propionate) 16 Gm [place].susp 2 [place] NS DAILY Cetirizine Hcl 10 Mg Tablet 1 Tab PO DAILY Symbicort 80-4.5 Mcg Inhaler (Budesonide/Formoterol Fumarate) 10.2 Gm Hfa.aer.ad 2 Puff IH BID Allopurinol 100 Mg Tablet 100 Mg PO DAILY Combivent Respimat Inhal (Ipratropium/Albuterol Sulfate) 4 Gm Aer.w.adap 2 Inh IH PRN QID PRN Vitals/I & O Vital Sign - Last 24 Hours 10/05/16 10/05/16 10/05/16 10/05/16 14:58 15:00 19:40 19:54 Temp 98.0 98.2 98.0 98.2 Pulse 71 80 86 Resp 20 22 B/P (MAP) 120/57 148/94 (112) 163/84 (110) Pulse Ox 94 96 95 O2 Delivery Room Air Room Air O2 Flow Rate 4.0 10/05/16 10/05/16 10/05/16 10/05/16 20:00 21:50 21:51 23:40 Temp 98.0 98.0 Pulse 78 78 67 Resp 18 B/P (MAP) 163/84 163/84 151/92 (111) Pulse Ox 94 O2 Delivery Room Air BiPAP/CPAP 10/06/16 10/06/16 10/06/16 10/06/16 03:55 07:30 07:31 08:22 Temp 97.7 96.7 97.7 96.7 Pulse 58 57 Resp 18 18 B/P (MAP) 147/86 (106) 151/103 (119) Pulse Ox 92 93 92 O2 Delivery BiPAP/CPAP BiPAP/CPAP Room Air Room Air 10/06/16 10/06/16 10/06/16 10/06/16 09:00 09:01 09:01 09:01 Pulse 57 57 57 57 B/P (MAP) 151/103 151/103 151/103 151/103 10/06/16 11:30 Temp 97.7 97.7 Pulse 68 Resp 18 B/P (MAP) 115/81 (92) Pulse Ox 95 O2 Delivery Room Air Intake and Output 10/05/16 10/05/16 10/06/16 15:00 23:00 07:00 Intake Total 560 ml 1110 ml Output Total 1200 ml 0 ml Balance 560 ml -90 ml 0 ml PATRICIA WINTERS MD Oct 06, 2016 14:15
[2016-10-06] MEDS: ALPRAZolam 0.25 MG TABLET PO PRN ×2 (14:18→22:19)
--- NOTE | 2016-10-06 14:58 | PDOC ---
PROGRESS NOTES Subjective Subjective The patient looks and feels better today. Objective Objective Vital Signs Date Time Temp Pulse Resp B/P (MAP) Pulse Ox O2 Delivery O2 Flow Rate FiO2 10/06/16 14:16 78 141/82 10/06/16 11:30 97.7 18 95 Room Air 97.7 10/05/16 15:00 4.0 Intake and Output 10/06/16 07:00 Intake Total 1670 ml Output Total 1200 ml Balance 470 ml Intake Oral 1670 ml Output Urine Total 1200 ml # Voids 1 Physical Exam Abdomen: Normal bowel sounds Heart: Regular rate General: No acute distress Lungs: Clear to auscultation Assessment Assessment 1. NSTEMI: LHC no significant coronary lesions, EF normal, continue continue medical treatment.medical treatment. 2. Accelerated HTN: improved 3. 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 Will monitor until tomorrow. If no significant arrhythmias the patient may go home and we will arrange outpt monitoring. 4. Syncope with fall: Rhythm as above 5. DM2/HLP 6. COPD/KIRSTIE/heavy tobaccoism 7. Morbid obesity: BMI 50 8. Heavy tobaccoism Comment Review of Relevant I have reviewed the following items lena (where applicable) has been applied. Labs Laboratory Tests Test 10/04/16 15:58 10/04/16 20:55 10/05/16 04:28 10/05/16 12:00 Glucose (Fingerstick) 163 mg/dL (70-99) 206 mg/dL (70-99) 134 mg/dL (70-99) White Blood Count 14.4 x10^3/uL (4.0-11.0) Red Blood Count 5.10 x10^6/uL (4.30-5.70) Hemoglobin 15.7 g/dL (13.0-17.5) Hematocrit 47.0 % (39.0-53.0) Mean Corpuscular Volume 92 fL (79-100) Mean Corpuscular Hemoglobin 31 pg (25-35) Mean Corpuscular Hemoglobin Concent 33 g/dL (31-37) Red Cell Distribution Width 14.8 % (11.5-14.5) Platelet Count 253 x10^3/uL (140-400) Neutrophils (%) (Auto) 76 % (31-73) Lymphocytes (%) (Auto) 16 % (24-48) Monocytes (%) (Auto) 7 % (0-9) Eosinophils (%) (Auto) 0 % (0-3) Basophils (%) (Auto) 0 % (0-3) Neutrophils # (Auto) 11.0 x10^3uL (1.8-7.7) Lymphocytes # (Auto) 2.3 x10^3/uL (1.0-4.8) Monocytes # (Auto) 1.0 x10^3/uL (0.0-1.1) Eosinophils # (Auto) 0.1 x10^3/uL (0.0-0.7) Basophils # (Auto) 0.0 x10^3/uL (0.0-0.2) Sodium Level 142 mmol/L (136-145) Potassium Level 3.9 mmol/L (3.5-5.1) Chloride Level 104 mmol/L (98-107) Carbon Dioxide Level 30 mmol/L (21-32) Anion Gap 8 (6-14) Blood Urea Nitrogen 15 mg/dL (8-26) Creatinine 0.8 mg/dL (0.7-1.3) Estimated GFR (Cockcroft-Gault) 101.1 Glucose Level 101 mg/dL (70-99) Calcium Level 8.9 mg/dL (8.5-10.1) Test 10/05/16 16:58 10/05/16 21:35 10/06/16 08:02 10/06/16 11:46 Glucose (Fingerstick) 135 mg/dL (70-99) 128 mg/dL (70-99) 124 mg/dL (70-99) 101 mg/dL (70-99) Laboratory Tests Test 10/05/16 16:58 10/05/16 21:35 10/06/16 08:02 10/06/16 11:46 Glucose (Fingerstick) 135 mg/dL (70-99) 128 mg/dL (70-99) 124 mg/dL (70-99) 101 mg/dL (70-99) Medications Current Medications Heparin Sodium/ Dextrose 500 ml @ 0 mls/hr CONT PRN IV SEE I/O RECORD Last administered on 10/03/16t 22:15; Start 10/03/16 at 06:00; Stop 10/05/16 at 11:27 ; Status DC Heparin Sodium (Porcine) (Heparin Sodium) 4,100 unit PRN Q6HRS PRN IV FOR UFH LEVEL LESS THAN 0.2 Last administered on 10/04/16 05:00; Start 10/03/16 at 06: 00; Stop 10/05/16 at 11:28; Status DC Info (Anti-Coagulation Monitoring By Pharmacy) 1 each PRN DAILY PRN MC SEE COMMENTS Last administered on 10/03/16 05:54; Start 10/03/16 at 06:00; Stop at 11:28; Status DC Hydralazine HCl (Apresoline) 10 mg PRN Q4HRS PRN IVP ELEVATED BP, SEE COMMENTS Last administered on 10/03/16 08:37; Start 10/03/16 at 08:30; Stop 10/03/16 at 09:18; Status DC Lisinopril (Prinivil) 40 mg DAILY PO Last administered on 10/06/16 09:01; Start 10/03/16 at 09:00 Acetaminophen (Tylenol) 650 mg PRN Q6HRS PRN PO FEVER; Start 10/03/16 at 09:15 Ondansetron HCl (Zofran) 4 mg PRN Q6HRS PRN IV NAUSEA/VOMITING; Start 10/03/16 at 09:15 Morphine Sulfate 2 mg PRN Q2HR PRN IV PAIN; Start 10/03/16 at 09:15 Tramadol HCl (Ultram) 50 mg PRN Q6HRS PRN PO PAIN Last administered on 21:53; Start 10/03/16 at 09:15 Hydralazine HCl (Apresoline) 10 mg PRN Q4HRS PRN IVP ELEVATED BP, SEE COMMENTS Last administered on 10/04/16 03:51; Start 10/03/16 at 09:15 Docusate Sodium (Colace) 100 mg PRN DAILY PRN PO CONSTIPATION; Start 10/03/16 at 09:15 Alprazolam (Xanax) 0.25 mg PRN DAILY PRN PO ANXIETY / AGITATION Last administered on 10/05/16 08:54; Start 10/03/16 at 09:15; Stop 10/05/16 at 22:01 ; Status DC Amlodipine Besylate (Norvasc) 10 mg DAILY PO Last administered on 10/06/16 09: 01; Start 10/03/16 at 10:00 Sulfur Hexafluoride Microspheres (Lumason) 25 mg STK-MED ONCE IVP ; Start at 10:27; Stop 10/03/16 at 10:28; Status DC Allopurinol (Zyloprim) 100 mg DAILY PO Last administered on 10/06/16 09:01; Start 10/03/16 at 11:00 Aspirin (Ecotrin) 81 mg DAILY PO Last administered on 10/06/16 09:00; Start at 11:00 Buspirone HCl (Buspar) 10 mg TID PO Last administered on 10/06/16 14:15; Start 10/03/16 at 14:00 Cetirizine HCl (ZyrTEC) 10 mg DAILY PO Last administered on 10/06/16 09:01; Start 10/03/16 at 11:00 Fluticasone Propionate (Flonase) 2 spray DAILY NS Last administered on 09:00; Start 10/04/16 at 09:00 Nicotine (Nicoderm Cq 21mg) 1 patch DAILY TD ; Start 10/04/16 at 09:00; Stop at 09:00; Status DC Nitroglycerin (Nitrostat) 0.4 mg PRN Q5MIN PRN SL CHEST PAIN; Start 10/03/16 at 10:45; Stop 10/06/16 at 09:14; Status DC Venlafaxine HCl (Effexor) 50 mg TID PO Last administered on 10/06/16 14:15; Start 10/03/16 at 11:00 Non-Formulary Medication 2 puff BID IH ; Start 10/03/16 at 21:00; Status UNV Non-Formulary Medication 2 inh PRN QID PRN IH SHORTNESS OF BREATH; Start at 10:45; Status UNV Non-Formulary Medication 10 mg PRN DAILY PRN PO ALLERGIES; Start 10/03/16 at 10 :45; Status UNV Pantoprazole Sodium (Protonix) 40 mg DAILYAC PO Last administered on 10/06/16 09:00; Start 10/03/16 at 11:00 Albuterol Sulfate (Ventolin Neb Soln) 2.5 mg PRN QID PRN NEB SHORTNESS OF BREATH Last administered on 10/06/16 07:38; Start 10/03/16 at 11:00 Budesonide (Pulmicort) 0.5 mg RTBID NEB ; Start 10/03/16 at 20:00; Status UNV Budesonide (Pulmicort) 0.5 mg RTBID NEB Last administered on 10/06/16 07:30; Start 10/03/16 at 11:00 Albuterol Sulfate (Ventolin Neb Soln) 2.5 mg RTQID NEB Last administered on 12:12; Start 10/03/16 at 12:00; Stop 10/03/16 at 13:13; Status DC Sulfur Hexafluoride Microspheres (Lumason) 25 mg 1X ONCE IVP Last administered on 10/03/16 10:55; Start 10/03/16 at 11:00; Stop 10/03/16 at 11:01 ; Status DC Nicotine (Nicoderm Cq 21mg) 1 patch DAILY TD Last administered on 10/06/16 09: 02; Start 10/03/16 at 11:45 Insulin Aspart (NovoLOG) 0-9 UNITS TIDWMEALS SQ Last administered on 10/04/16 17:24; Start 10/03/16 at 12:00 Dextrose (Dextrose 50%-Water Syringe) 12.5 gm PRN Q15MIN PRN IV SEE COMMENTS; Start 10/03/16 at 12:00 Famotidine (Pepcid) 20 mg BID PO Last administered on 10/03/16 21:47; Start at 12:45; Stop 10/03/16 at 22:00; Status DC Diphenhydramine HCl (Benadryl) 50 mg 1X ONCE PO Last administered on 06:37; Start 10/04/16 at 07:00; Stop 10/04/16 at 07:01; Status DC Famotidine (Pepcid) 40 mg 1X ONCE PO Last administered on 10/04/16 06:39; Start 10/04/16 at 07:00; Stop 10/04/16 at 07:01; Status DC Prednisone (Prednisone) 50 mg Q6HRS PO Last administered on 10/04/16 06:37; Start 10/03/16 at 18:00; Stop 10/04/16 at 08:00; Status DC Atorvastatin Calcium (Lipitor) 20 mg QHS PO Last administered on 10/05/16 21: 50; Start 10/03/16 at 21:00 Labetalol HCl (Normodyne) 20 mg 1X ONCE IVP Last administered on 10/03/16 15: 58; Start 10/03/16 at 16:00; Stop 10/03/16 at 16:01; Status DC Labetalol HCl (Normodyne) 20 mg PRN Q2HR PRN IVP HYPERTENSION, SEE COMMENTS; Start 10/03/16 at 16:30 Metoprolol Tartrate (Lopressor) 5 mg Q6HRS IVP Last administered on 10/04/16 12:08; Start 10/04/16 at 00:00; Stop 10/04/16 at 16:51; Status DC Metoprolol Tartrate (Lopressor) 5 mg 1X ONCE IVP ; Start 10/03/16 at 19:45; Stop 10/03/16 at 19:46; Status DC Lidocaine HCl 20 ml STK-MED ONCE .ROUTE ; Start 10/04/16 at 08:43; Stop at 08:44; Status DC Iohexol (Omnipaque 350 Mg/ml) 100 ml STK-MED ONCE .ROUTE ; Start 10/04/16 at 08: 43; Stop 10/04/16 at 08:44; Status DC Heparin Sodium/ Sodium Chloride 1,000 ml @ As Directed STK-MED ONCE .ROUTE ; Start 10/04/16 at 08:43; Stop 10/04/16 at 08:44; Status DC Heparin Sodium/ Sodium Chloride 1,000 unit 1X ONCE IART Last administered on 10:30; Start 10/04/16 at 09:30; Stop 10/04/16 at 09:31; Status DC Midazolam HCl (Versed) 2 mg 1X ONCE IV Last administered on 10/04/16 10:31; Start 10/04/16 at 09:30; Stop 10/04/16 at 09:31; Status DC Fentanyl Citrate (Fentanyl 2ml Vial) 100 mcg 1X ONCE IV Last administered on 10:32; Start 10/04/16 at 09:30; Stop 10/04/16 at 09:31; Status DC Iohexol (Omnipaque 300 Mg/ml) 100 ml 1X ONCE IART Last administered on t 10:32; Start 10/04/16 at 09:30; Stop 10/04/16 at 09:31; Status DC Lidocaine HCl 20 ml 1X ONCE IJ Last administered on 10/04/16t 10:32; Start at 09:30; Stop 10/04/16 at 09:31; Status DC Info (Do NOT chart on this entry -- for MONITORING) 1 each PRN DAILY PRN MC SEE COMMENTS; Start 10/04/16 at 09:30; Stop 10/06/16 at 09:29; Status DC Methylprednisolone Sodium Succinate (SOLU-Medrol 125MG VIAL) 125 mg STK-MED ONCE .ROUTE ; Start 10/04/16 at 09:27; Stop 10/04/16 at 09:28; Status DC Methylprednisolone Sodium Succinate (SOLU-Medrol 125MG VIAL) 125 mg 1X ONCE IV ; Start 10/04/16 at 09:45; Stop 10/04/16 at 09:45; Status DC Heparin Sodium/ Sodium Chloride 500 ml @ As Directed STK-MED ONCE .ROUTE ; Start 10/04/16 at 09:56; Stop 10/04/16 at 09:57; Status DC Midazolam HCl (Versed) 2 mg STK-MED ONCE .ROUTE ; Start 10/04/16 at 10:16; Stop 10/04/16 at 10:17; Status DC Iohexol (Omnipaque 350 Mg/ml) 100 ml STK-MED ONCE .ROUTE ; Start 10/04/16 at 10: 37; Stop 10/04/16 at 10:38; Status DC Bivalirudin (Angiomax) 250 mg STK-MED ONCE IV ; Start 10/04/16 at 10:37; Stop at 10:38; Status DC Bivalirudin (Angiomax) 250 mg 1X ONCE IV Last administered on 10/04/16t 10:55 ; Start 10/04/16 at 11:00; Stop 10/04/16 at 11:01; Status DC Aspirin (Robinson Aspirin) 325 mg 1X ONCE PO ; Start 10/04/16 at 11:00; Stop 10/04 at 11:01; Status DC Sodium Chloride (Normal Saline Flush) 3 ml QSHIFT PRN IV AFTER MEDS AND BLOOD DRAWS; Start 10/04/16 at 11:15 Sodium Chloride 1,000 ml @ 75 mls/hr [id number] IV Last administered on 12:08; Start 10/04/16 at 11:01; Stop 10/04/16 at 19:00; Status DC Nitroglycerin (Nitrostat) 0.4 mg PRN Q5MIN PRN SL CHEST PAIN; Start 10/04/16 at 11:15 Metoprolol Tartrate (Lopressor) 25 mg BID PO Last administered on 10/06/16 09: 01; Start 10/04/16 at 21:00 Hydralazine HCl (Apresoline) 25 mg TID PO ; Start 10/05/16 at 14:00; Stop at 14:14; Status DC Hydralazine HCl (Apresoline) 50 mg TID PO Last administered on 10/06/16 14:16 ; Start 10/05/16 at 14:30 Alprazolam (Xanax) 0.25 mg PRN TID PRN PO ANXIETY / AGITATION Last administered on 10/06/16 14:18; Start 10/05/16 at 22:00 Active Scripts Active Metoprolol Tartrate 25 Mg Tablet 25 Mg PO BID 30 Days Lisinopril 40 Mg Tablet 40 Mg PO DAILY 30 Days Atorvastatin Calcium 20 Mg Tablet 20 Mg PO QHS 30 Days Amlodipine Besylate 10 Mg Tablet 10 Mg PO DAILY 30 Days Reported B-12 (Cyanocobalamin (Vitamin B-12)) 1,000 Mcg Tablet.er 1,000 Mcg PO DAILY Aspir 81 (Aspirin) 81 Mg Tablet. 1 Tab PO DAILY Afrin (Oxymetazoline Hcl) 15 Ml Mist 15 Ml NS PRN Q6HRS PRN NITROGLYCERIN SubLingual (Nitroglycerin) 0.4 Mg Tab.subl 0.4 Mg SL PRN Q5MIN PRN Buspirone Hcl 10 Mg Tablet 10 Mg PO TID Venlafaxine Hcl 75 Mg Tablet 150 Mg PO DAILY Omeprazole 40 Mg Capsule.dr 40 Mg PO DAILY NICODERM CQ 21mg (Nicotine) 1 Each Patch.td24 1 Patch TD DAILY Metformin Hcl 500 Mg Tablet 500 Mg PO BIDWMEALS Loratadine 10 Mg Tablet 10 Mg PO PRN DAILY PRN Fluticasone Propionate Nasal [place] (Fluticasone Propionate) 16 Gm [place].susp 2 [place] NS DAILY Cetirizine Hcl 10 Mg Tablet 1 Tab PO DAILY Symbicort 80-4.5 Mcg Inhaler (Budesonide/Formoterol Fumarate) 10.2 Gm Hfa.aer.ad 2 Puff IH BID Allopurinol 100 Mg Tablet 100 Mg PO DAILY Combivent Respimat Inhal (Ipratropium/Albuterol Sulfate) 4 Gm Aer.w.adap 2 Inh IH PRN QID PRN Vitals/I & O Vital Sign - Last 24 Hours 10/05/16 10/05/16 10/05/16 10/05/16 14:58 15:00 19:40 19:54 Temp 98.0 98.2 98.0 98.2 Pulse 71 80 86 Resp 20 22 B/P (MAP) 120/57 148/94 (112) 163/84 (110) Pulse Ox 94 96 95 O2 Delivery Room Air Room Air O2 Flow Rate 4.0 10/05/16 10/05/16 10/05/16 10/05/16 20:00 21:50 21:51 23:40 Temp 98.0 98.0 Pulse 78 78 67 Resp 18 B/P (MAP) 163/84 163/84 151/92 (111) Pulse Ox 94 O2 Delivery Room Air BiPAP/CPAP 10/06/16 10/06/16 10/06/16 10/06/16 03:55 07:30 07:31 08:22 Temp 97.7 96.7 97.7 96.7 Pulse 58 57 Resp 18 18 B/P (MAP) 147/86 (106) 151/103 (119) Pulse Ox 92 93 92 O2 Delivery BiPAP/CPAP BiPAP/CPAP Room Air Room Air 10/06/16 10/06/16 10/06/16 10/06/16 09:00 09:01 09:01 09:01 Pulse 57 57 57 57 B/P (MAP) 151/103 151/103 151/103 151/103 10/06/16 10/06/16 11:30 14:16 Temp 97.7 97.7 Pulse 68 78 Resp 18 B/P (MAP) 115/81 (92) 141/82 Pulse Ox 95 O2 Delivery Room Air Intake and Output 10/05/16 10/05/16 10/06/16 15:00 23:00 07:00 Intake Total 560 ml 1110 ml Output Total 1200 ml 0 ml Balance 560 ml -90 ml 0 ml MARIANNE VERONICA MD Oct 06, 2016 14:58
[2016-10-06 15:15] VITALS: BP 133/80
[2016-10-06 19:33] VITALS: BP 120/77
[2016-10-06] MEDS: ATORVASTATIN CALCIUM 20 MG TABLET PO SCH (20:35)
[2016-10-06 23:25] VITALS: BP 149/91
[2016-10-07 03:00] VITALS: BP 144/91
[2016-10-07 07:00] VITALS: BP 137/94
[2016-10-07] MEDS: BUDESONIDE 0.5 MG/2 ML NEBU. NEB SCH (07:30)
[2016-10-07] MEDS: ALBUTEROL SULFATE 2.5 MG/3 ML NEBU. NEB PRN (07:30)
[2016-10-07] MEDS: INSULIN ASPART 300 UNITS/3 ML INSULN.PEN SQ SCH (08:00)
[2016-10-07] MEDS: ALLOPURINOL 100 MG TABLET. PO SCH (08:48)
[2016-10-07] MEDS: VENLAFAXINE 50 MG TABLET. PO SCH (08:48)
[2016-10-07] MEDS: NICOTINE 21MG PATCH. TD SCH (08:48)
[2016-10-07] MEDS: busPIRone 10 MG TABLET. PO SCH (08:49)
[2016-10-07] MEDS: PANTOPRAZOLE 40 MG TABLET.DR. PO SCH (08:49)
[2016-10-07] MEDS: METOPROLOL TART IMMED RELEASE 25 MG TABLET. PO SCH (08:49)
[2016-10-07] MEDS: ASPIRIN ENTERIC COATED 81 MG TABLET.DR. PO SCH (08:49)
[2016-10-07] MEDS: amLODIPine BESYLATE 10 MG TABLET PO SCH (08:50)
[2016-10-07] MEDS: CETIRIZINE HCL 10 MG TABLET. PO SCH (08:50)
[2016-10-07 09:53] VITALS: BP 137/94
[2016-10-07] MEDS: LISINOPRIL 40 MG TABLET. PO SCH (09:53)
[2016-10-07] MEDS: FLUTICASONE 50MCG/NASAL SPRAY 16GM BOTTLE. NS SCH (09:54)
[2016-10-07] MEDS ORDERED: HYDR-2869 PO (13:08)
--- NOTE | 2016-10-07 13:10 | PDOC3 ---
Discharge Summary [facility] Date of Admission: Oct 03, 2016 Discharge Date: Oct 07, 2016 Admitting Diagnosis syncope, possible 2/2 arrythmia Arrythmia, svt, junctional need to rule out sick sinus syndrome NSTMEI ruled out, elevated troponin but no chest pain KIRSTIE copd tobaccoism morbid obesity htn dm2 anxiety Problems: CONSULTS Problems: CONSULTS card pulm Brief Hospital Course Brief Hospital Course 51yo M, with copd, smoking, htn, dm2, was sent from [place] for syncope. pt is a poor historian. He said he has not been using his CPAP with mask problem , and kept falling sleep and yawning when i talked to him. He said he was with his gf yesterday, standing on a escalator then felt lightheaded and syncoped, but pt could not really tell how it happened, denies chest pain, sob. He syncoped for 1 sec, and then woke up , felt ok, then left. But he was worrying about his glucose, so they went to a restaurant for meal, his gf checked his glucose was 129, but BP was 80s then went to [place] in [place], was found SVT, elevated troponin and then sent here. overnight, his HR fluctuated to 120s and 40s when he slept, and troponin is >2. denies heart problem, very anxious Pt was found mild elevated troponin, denies chest pain, echo normal, cath normal on CPAP here , tolerated well. dc home with HTN meds, and fu with pulm for CPAP. also need holter monitor, should fu with [place] card for it. passed 6min walk. Pt's HR more stable when DC, sinus, not fluctuate much, no PPM need as this time. very anxious, educated him to fu with psych tmr. dc time 35min. General: Alert, Oriented X3, Cooperative, No acute distress Heart: Regular rate (SR), Normal S1, Normal S2, Other (2/6 systolic murmur to LLS border) Lungs: Clear Abdomen: Soft, No tenderness, Other (truncal obesity) Extremities: No cyanosis, No edema Skin: No breakdown, No significant lesion Patient History: Patient History: FH: CABG (coronary artery bypass surgery) G8 BROTHER FH: CHF (congestive heart failure) 32 MOTHER Problems: Disposition home CONDITION AT DISCHARGE: Improved Diet cardiac Scheduled Allopurinol (Allopurinol), 100 MG PO DAILY, (Reported) Amlodipine Besylate (Amlodipine Besylate), 10 MG PO DAILY Aspirin (Aspir 81), 1 TAB PO DAILY, (Reported) Atorvastatin Calcium (Atorvastatin Calcium), 20 MG PO QHS Budesonide/Formoterol Fumarate (Symbicort 80-4.5 Mcg Inhaler), 2 PUFF IH BID, ( Reported) Buspirone Hcl (Buspirone Hcl), 10 MG PO TID, (Reported) Cetirizine Hcl (Cetirizine Hcl), 1 TAB PO DAILY, (Reported) Cyanocobalamin (Vitamin B-12) (B-12), 1,000 MCG PO DAILY, (Reported) Fluticasone Propionate (Fluticasone Propionate Nasal [place]), 2 SPRAY NS DAILY, ( Reported) Hydralazine Hcl (Hydralazine Hcl), 50 MG PO TID Lisinopril (Lisinopril), 40 MG PO DAILY Metformin Hcl (Metformin Hcl), 500 MG PO BIDWMEALS, (Reported) Metoprolol Tartrate (Metoprolol Tartrate), 25 MG PO BID Nicotine (NICODERM CQ 21mg), 1 PATCH TD DAILY, (Reported) Omeprazole (Omeprazole), 40 MG PO DAILY, (Reported) Venlafaxine Hcl (Venlafaxine Hcl), 150 MG PO DAILY, (Reported) Scheduled PRN Ipratropium/Albuterol Sulfate (Combivent Respimat Inhal), 2 INH IH PRN QID PRN for SHORTNESS OF BREATH, (Reported) Loratadine (Loratadine), 10 MG PO PRN DAILY PRN for ALLERGIES, (Reported) Nitroglycerin (NITROGLYCERIN SubLingual), 0.4 MG SL PRN Q5MIN PRN for CHEST PAIN , (Reported) Oxymetazoline Hcl (Afrin), 15 ML NS PRN Q6HRS PRN for ALLERGIES, (Reported) Discontinued Medications Lisinopril (Lisinopril), 30 MG PO DAILY, (Reported) Sildenafil Citrate (Viagra), 1 TAB PO UD, (Reported) Follow Up pcp , pulm, karen in 2 weeks PATRICIA WINTERS MD Oct 07, 2016 13:10
--- NOTE | 2016-10-07 14:12 | PDOC ---
PROGRESS NOTES Subjective Subjective The patient looks and feels better today. Objective Objective Vital Signs Date Time Temp Pulse Resp B/P (MAP) Pulse Ox O2 Delivery O2 Flow Rate FiO2 10/07/16 09:53 67 137/94 10/07/16 08:00 Room Air 4.0 10/07/16 07:29 92 10/07/16 07:00 98.9 16 98.9 Intake and Output 10/07/16 07:00 Intake Total 2220 ml Output Total 1550 ml Balance 670 ml Intake Oral 2220 ml Output Urine Total 1550 ml Physical Exam Abdomen: Normal bowel sounds Heart: Regular rate General: No acute distress Lungs: Clear to auscultation Assessment Assessment Assessment 1. NSTEMI: LHC no significant coronary lesions, EF normal, continue continue medical treatment.medical treatment. 2. Accelerated HTN: improved 3. 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 Continue medical treatment. OK for home from CV viewpoint. Will contact pt. for outpt. monitoring. 4. Syncope with fall: Rhythm as above 5. DM2/HLP 6. COPD/KIRSTIE/heavy tobaccoism 7. Morbid obesity: BMI 50 8. Heavy tobaccoism Comment Review of Relevant I have reviewed the following items lena (where applicable) has been applied. Labs Laboratory Tests Test 10/05/16 16:58 10/05/16 21:35 10/06/16 08:02 10/06/16 11:46 Glucose (Fingerstick) 135 mg/dL (70-99) 128 mg/dL (70-99) 124 mg/dL (70-99) 101 mg/dL (70-99) Test 10/06/16 16:33 10/06/16 21:00 10/07/16 07:27 Glucose (Fingerstick) 148 mg/dL (70-99) 113 mg/dL (70-99) 114 mg/dL (70-99) Laboratory Tests Test 10/06/16 16:33 10/06/16 21:00 10/07/16 07:27 Glucose (Fingerstick) 148 mg/dL (70-99) 113 mg/dL (70-99) 114 mg/dL (70-99) Medications Current Medications Heparin Sodium/ Dextrose 500 ml @ 0 mls/hr CONT PRN IV SEE I/O RECORD Last administered on 10/03/16t 22:15; Start 10/03/16 at 06:00; Stop 10/05/16 at 11:27 ; Status DC Heparin Sodium (Porcine) (Heparin Sodium) 4,100 unit PRN Q6HRS PRN IV FOR UFH LEVEL LESS THAN 0.2 Last administered on 10/04/16 05:00; Start 10/03/16 at 06: 00; Stop 10/05/16 at 11:28; Status DC Info (Anti-Coagulation Monitoring By Pharmacy) 1 each PRN DAILY PRN MC SEE COMMENTS Last administered on 10/03/16 05:54; Start 10/03/16 at 06:00; Stop at 11:28; Status DC Hydralazine HCl (Apresoline) 10 mg PRN Q4HRS PRN IVP ELEVATED BP, SEE COMMENTS Last administered on 10/03/16 08:37; Start 10/03/16 at 08:30; Stop 10/03/16 at 09:18; Status DC Lisinopril (Prinivil) 40 mg DAILY PO Last administered on 10/07/16 09:53; Start 10/03/16 at 09:00; Stop 10/07/16 at 12:15; Status DC Acetaminophen (Tylenol) 650 mg PRN Q6HRS PRN PO FEVER; Start 10/03/16 at 09:15 ; Stop 10/07/16 at 12:15; Status DC Ondansetron HCl (Zofran) 4 mg PRN Q6HRS PRN IV NAUSEA/VOMITING; Start 10/03/16 at 09:15; Stop 10/07/16 at 12:15; Status DC Morphine Sulfate 2 mg PRN Q2HR PRN IV PAIN; Start 10/03/16 at 09:15; Stop 10/07 at 12:15; Status DC Tramadol HCl (Ultram) 50 mg PRN Q6HRS PRN PO PAIN Last administered on 21:53; Start 10/03/16 at 09:15; Stop 10/07/16 at 12:15; Status DC Hydralazine HCl (Apresoline) 10 mg PRN Q4HRS PRN IVP ELEVATED BP, SEE COMMENTS Last administered on 10/04/16 03:51; Start 10/03/16 at 09:15; Stop 10/07/16 at 12:15; Status DC Docusate Sodium (Colace) 100 mg PRN DAILY PRN PO CONSTIPATION; Start 10/03/16 at 09:15; Stop 10/07/16 at 12:15; Status DC Alprazolam (Xanax) 0.25 mg PRN DAILY PRN PO ANXIETY / AGITATION Last administered on 10/05/16 08:54; Start 10/03/16 at 09:15; Stop 10/05/16 at 22:01 ; Status DC Amlodipine Besylate (Norvasc) 10 mg DAILY PO Last administered on 10/07/16 08: 50; Start 10/03/16 at 10:00; Stop 10/07/16 at 12:15; Status DC Sulfur Hexafluoride Microspheres ([place]umason) 25 mg STK-MED ONCE IVP ; Start at 10:27; Stop 10/03/16 at 10:28; Status DC Allopurinol (Zyloprim) 100 mg DAILY PO Last administered on 10/07/16 08:48; Start 10/03/16 at 11:00; Stop 10/07/16 at 12:15; Status DC Aspirin (Ecotrin) 81 mg DAILY PO Last administered on 10/07/16 08:49; Start at 11:00; Stop 10/07/16 at 12:15; Status DC Buspirone HCl (Buspar) 10 mg TID PO Last administered on 10/07/16 08:49; Start 10/03/16 at 14:00; Stop 10/07/16 at 12:15; Status DC Cetirizine HCl (ZyrTEC) 10 mg DAILY PO Last administered on 10/07/16 08:50; Start 10/03/16 at 11:00; Stop 10/07/16 at 12:15; Status DC Fluticasone Propionate (Flonase) 2 spray DAILY NS Last administered on 09:54; Start 10/04/16 at 09:00; Stop 10/07/16 at 12:15; Status DC Nicotine (Nicoderm Cq 21mg) 1 patch DAILY TD ; Start 10/04/16 at 09:00; Stop at 09:00; Status DC Nitroglycerin (Nitrostat) 0.4 mg PRN Q5MIN PRN SL CHEST PAIN; Start 10/03/16 at 10:45; Stop 10/06/16 at 09:14; Status DC Venlafaxine HCl (Effexor) 50 mg TID PO Last administered on 10/07/16 08:48; Start 10/03/16 at 11:00; Stop 10/07/16 at 12:15; Status DC Non-Formulary Medication 2 puff BID IH ; Start 10/03/16 at 21:00; Status UNV Non-Formulary Medication 2 inh PRN QID PRN IH SHORTNESS OF BREATH; Start at 10:45; Status UNV Non-Formulary Medication 10 mg PRN DAILY PRN PO ALLERGIES; Start 10/03/16 at 10 :45; Status UNV Pantoprazole Sodium (Protonix) 40 mg DAILYAC PO Last administered on 10/07/16 08:49; Start 10/03/16 at 11:00; Stop 10/07/16 at 12:15; Status DC Albuterol Sulfate (Ventolin Neb Soln) 2.5 mg PRN QID PRN NEB SHORTNESS OF BREATH Last administered on 10/07/16 07:30; Start 10/03/16 at 11:00; Stop 10/07 at 12:15; Status DC Budesonide (Pulmicort) 0.5 mg RTBID NEB ; Start 10/03/16 at 20:00; Status UNV Budesonide (Pulmicort) 0.5 mg RTBID NEB Last administered on 10/07/16 07:30; Start 10/03/16 at 11:00; Stop 10/07/16 at 12:15; Status DC Albuterol Sulfate (Ventolin Neb Soln) 2.5 mg RTQID NEB Last administered on 12:12; Start 10/03/16 at 12:00; Stop 10/03/16 at 13:13; Status DC Sulfur Hexafluoride Microspheres ([place]umason) 25 mg 1X ONCE IVP Last administered on 10/03/16 10:55; Start 10/03/16 at 11:00; Stop 10/03/16 at 11:01 ; Status DC Nicotine (Nicoderm Cq 21mg) 1 patch DAILY TD Last administered on 10/07/16 08: 48; Start 10/03/16 at 11:45; Stop 10/07/16 at 12:15; Status DC Insulin Aspart (NovoLOG) 0-9 UNITS TIDWMEALS SQ Last administered on 10/04/16 17:24; Start 10/03/16 at 12:00; Stop 10/07/16 at 12:15; Status DC Dextrose (Dextrose 50%-Water Syringe) 12.5 gm PRN Q15MIN PRN IV SEE COMMENTS; Start 10/03/16 at 12:00; Stop 10/07/16 at 12:15; Status DC Famotidine (Pepcid) 20 mg BID PO Last administered on 10/03/16 21:47; Start at 12:45; Stop 10/03/16 at 22:00; Status DC Diphenhydramine HCl (Benadryl) 50 mg 1X ONCE PO Last administered on 06:37; Start 10/04/16 at 07:00; Stop 10/04/16 at 07:01; Status DC Famotidine (Pepcid) 40 mg 1X ONCE PO Last administered on 10/04/16 06:39; Start 10/04/16 at 07:00; Stop 10/04/16 at 07:01; Status DC Prednisone (Prednisone) 50 mg Q6HRS PO Last administered on 10/04/16 06:37; Start 10/03/16 at 18:00; Stop 10/04/16 at 08:00; Status DC Atorvastatin Calcium (Lipitor) 20 mg QHS PO Last administered on 10/06/16 20: 35; Start 10/03/16 at 21:00; Stop 10/07/16 at 12:15; Status DC Labetalol HCl (Normodyne) 20 mg 1X ONCE IVP Last administered on 10/03/16 15: 58; Start 10/03/16 at 16:00; Stop 10/03/16 at 16:01; Status DC Labetalol HCl (Normodyne) 20 mg PRN Q2HR PRN IVP HYPERTENSION, SEE COMMENTS; Start 10/03/16 at 16:30; Stop 10/07/16 at 12:15; Status DC Metoprolol Tartrate (Lopressor) 5 mg Q6HRS IVP Last administered on 10/04/16 12:08; Start 10/04/16 at 00:00; Stop 10/04/16 at 16:51; Status DC Metoprolol Tartrate (Lopressor) 5 mg 1X ONCE IVP ; Start 10/03/16 at 19:45; Stop 10/03/16 at 19:46; Status DC Lidocaine HCl 20 ml STK-MED ONCE .ROUTE ; Start 10/04/16 at 08:43; Stop at 08:44; Status DC Iohexol (Omnipaque 350 Mg/ml) 100 ml STK-MED ONCE .ROUTE ; Start 10/04/16 at 08: 43; Stop 10/04/16 at 08:44; Status DC Heparin Sodium/ Sodium Chloride 1,000 ml @ As Directed STK-MED ONCE .ROUTE ; Start 10/04/16 at 08:43; Stop 10/04/16 at 08:44; Status DC Heparin Sodium/ Sodium Chloride 1,000 unit 1X ONCE IART Last administered on 10:30; Start 10/04/16 at 09:30; Stop 10/04/16 at 09:31; Status DC Midazolam HCl (Versed) 2 mg 1X ONCE IV Last administered on 10/04/16 10:31; Start 10/04/16 at 09:30; Stop 10/04/16 at 09:31; Status DC Fentanyl Citrate (Fentanyl 2ml Vial) 100 mcg 1X ONCE IV Last administered on 10:32; Start 10/04/16 at 09:30; Stop 10/04/16 at 09:31; Status DC Iohexol (Omnipaque 300 Mg/ml) 100 ml 1X ONCE IART Last administered on 10:32; Start 10/04/16 at 09:30; Stop 10/04/16 at 09:31; Status DC Lidocaine HCl 20 ml 1X ONCE IJ Last administered on 10/04/16 10:32; Start at 09:30; Stop 10/04/16 at 09:31; Status DC Info (Do NOT chart on this entry -- for MONITORING) 1 each PRN DAILY PRN MC SEE COMMENTS; Start 10/04/16 at 09:30; Stop 10/06/16 at 09:29; Status DC Methylprednisolone Sodium Succinate (SOLU-Medrol 125MG VIAL) 125 mg STK-MED ONCE .ROUTE ; Start 10/04/16 at 09:27; Stop 10/04/16 at 09:28; Status DC Methylprednisolone Sodium Succinate (SOLU-Medrol 125MG VIAL) 125 mg 1X ONCE IV ; Start 10/04/16 at 09:45; Stop 10/04/16 at 09:45; Status DC Heparin Sodium/ Sodium Chloride 500 ml @ As Directed STK-MED ONCE .ROUTE ; Start 10/04/16 at 09:56; Stop 10/04/16 at 09:57; Status DC Midazolam HCl (Versed) 2 mg STK-MED ONCE .ROUTE ; Start 10/04/16 at 10:16; Stop 10/04/16 at 10:17; Status DC Iohexol (Omnipaque 350 Mg/ml) 100 ml STK-MED ONCE .ROUTE ; Start 10/04/16 at 10: 37; Stop 10/04/16 at 10:38; Status DC Bivalirudin (Angiomax) 250 mg STK-MED ONCE IV ; Start 10/04/16 at 10:37; Stop at 10:38; Status DC Bivalirudin (Angiomax) 250 mg 1X ONCE IV Last administered on 10/04/16t 10:55 ; Start 10/04/16 at 11:00; Stop 10/04/16 at 11:01; Status DC Aspirin ([place]inson Aspirin) 325 mg 1X ONCE PO ; Start 10/04/16 at 11:00; Stop 10/04 at 11:01; Status DC Sodium Chloride (Normal Saline Flush) 3 ml QSHIFT PRN IV AFTER MEDS AND BLOOD DRAWS; Start 10/04/16 at 11:15; Stop 10/07/16 at 12:15; Status DC Sodium Chloride 1,000 ml @ 75 mls/hr [id number] IV Last administered on t 12:08; Start 10/04/16 at 11:01; Stop 10/04/16 at 19:00; Status DC Nitroglycerin (Nitrostat) 0.4 mg PRN Q5MIN PRN SL CHEST PAIN; Start 10/04/16 at 11:15; Stop 10/07/16 at 12:15; Status DC Metoprolol Tartrate (Lopressor) 25 mg BID PO Last administered on 10/07/16 08: 49; Start 10/04/16 at 21:00; Stop 10/07/16 at 12:15; Status DC Hydralazine HCl (Apresoline) 25 mg TID PO ; Start 10/05/16 at 14:00; Stop at 14:14; Status DC Hydralazine HCl (Apresoline) 50 mg TID PO Last administered on 10/07/16 08:49 ; Start 10/05/16 at 14:30; Stop 10/07/16 at 12:15; Status DC Alprazolam (Xanax) 0.25 mg PRN TID PRN PO ANXIETY / AGITATION Last administered on 10/06/16 22:19; Start 10/05/16 at 22:00; Stop 10/07/16 at 12:15 ; Status DC Active Scripts Active Hydralazine Hcl 50 Mg Tablet 50 Mg PO TID 30 Days Metoprolol Tartrate 25 Mg Tablet 25 Mg PO BID 30 Days Lisinopril 40 Mg Tablet 40 Mg PO DAILY 30 Days Atorvastatin Calcium 20 Mg Tablet 20 Mg PO QHS 30 Days Amlodipine Besylate 10 Mg Tablet 10 Mg PO DAILY 30 Days Reported B-12 (Cyanocobalamin (Vitamin B-12)) 1,000 Mcg Tablet.er 1,000 Mcg PO DAILY Aspir 81 (Aspirin) 81 Mg Tablet.dr 1 Tab PO DAILY Afrin (Oxymetazoline Hcl) 15 Ml Mist 15 Ml NS PRN Q6HRS PRN NITROGLYCERIN SubLingual (Nitroglycerin) 0.4 Mg Tab.subl 0.4 Mg SL PRN Q5MIN PRN Buspirone Hcl 10 Mg Tablet 10 Mg PO TID Venlafaxine Hcl 75 Mg Tablet 150 Mg PO DAILY Omeprazole 40 Mg Capsule.dr 40 Mg PO DAILY NICODERM CQ 21mg (Nicotine) 1 Each Patch.td24 1 Patch TD DAILY Metformin Hcl 500 Mg Tablet 500 Mg PO BIDWMEALS Loratadine 10 Mg Tablet 10 Mg PO PRN DAILY PRN Fluticasone Propionate Nasal [place] (Fluticasone Propionate) 16 Gm [place].susp 2 [place] NS DAILY Cetirizine Hcl 10 Mg Tablet 1 Tab PO DAILY Symbicort 80-4.5 Mcg Inhaler (Budesonide/Formoterol Fumarate) 10.2 Gm Hfa.aer.ad 2 Puff IH BID Allopurinol 100 Mg Tablet 100 Mg PO DAILY Combivent Respimat Inhal (Ipratropium/Albuterol Sulfate) 4 Gm Aer.w.adap 2 Inh IH PRN QID PRN Vitals/I & O Vital Sign - Last 24 Hours 10/06/16 10/06/16 10/06/16 10/06/16 14:16 15:15 19:18 19:33 Temp 97.7 97.8 97.7 97.8 Pulse 78 79 75 Resp 18 22 B/P (MAP) 141/82 133/80 (97) 120/77 (91) Pulse Ox 95 94 96 O2 Delivery Room Air Room Air Room Air 10/06/16 10/06/16 10/06/16 10/06/16 20:14 20:35 20:35 23:25 Temp 97.8 97.8 Pulse 75 75 67 Resp 18 B/P (MAP) 120/77 120/77 149/91 (110) Pulse Ox 94 O2 Delivery Room Air BiPAP/CPAP 10/07/16 10/07/16 10/07/16 10/07/16 03:00 07:00 07:29 08:00 Temp 98.9 98.9 Pulse 70 67 Resp 20 16 B/P (MAP) 144/91 (108) 137/94 (108) Pulse Ox 92 98 92 O2 Delivery BiPAP/CPAP Room Air Room Air Room Air O2 Flow Rate 4.0 10/07/16 10/07/16 10/07/16 10/07/16 08:49 08:49 08:50 09:53 Pulse 67 67 67 67 B/P (MAP) 137/94 137/94 137/94 137/94 Intake and Output 10/06/16 10/06/16 10/07/16 15:00 23:00 07:00 Intake Total 480 ml 1140 ml 600 ml Output Total 750 ml 800 ml Balance 480 ml 390 ml -200 ml MARIANNE VERONICA MD Oct 07, 2016 14:12
== END 2016-10-07 11:50 | disposition home or self-care (01) | DRG 287 ==
LOC: 2 NORTH 02:41
PROVIDERS: ADMIT Internal Medicine; ATTEND Internal Medicine
PROC: 5A09457 Assistance with Respiratory Ventilation, 24-96 Consecutive Hours, Continuous Positive Airway Pressure (ICD-10-PCS; 2016-10-03)
PROC: 4A023N7 Measurement of Cardiac Sampling and Pressure, Left Heart, Percutaneous Approach (ICD-10-PCS; principal; 2016-10-04)
PROC: B2111ZZ Fluoroscopy of Multiple Coronary Arteries using Low Osmolar Contrast (ICD-10-PCS; 2016-10-04)
PROC: B2151ZZ Fluoroscopy of Left Heart using Low Osmolar Contrast (ICD-10-PCS; 2016-10-04)
DX: I49.9 Cardiac arrhythmia, unspecified (principal); I47.1 Supraventricular tachycardia; Z68.43 Body mass index [BMI] 50.0-59.9, adult; I49.5 Sick sinus syndrome; R55 Syncope and collapse; E66.01 Morbid (severe) obesity due to excess calories; E78.5 Hyperlipidemia, unspecified; F12.90 Cannabis use, unspecified, uncomplicated; F17.210 Nicotine dependence, cigarettes, uncomplicated; F41.9 Anxiety disorder, unspecified; G47.33 Obstructive sleep apnea (adult) (pediatric); I50.9 Heart failure, unspecified; I11.0 Hypertensive heart disease with heart failure; E11.42 Type 2 diabetes mellitus with diabetic polyneuropathy; J30.9 Allergic rhinitis, unspecified; M19.90 Unspecified osteoarthritis, unspecified site; J44.9 Chronic obstructive pulmonary disease, unspecified; K21.9 Gastro-esophageal reflux disease without esophagitis; M10.9 Gout, unspecified; T78.3XXA Angioneurotic edema, initial encounter; Z82.49 Family history of ischemic heart disease and other diseases of the circulatory system; Z91.041 Radiographic dye allergy status; Z95.1 Presence of aortocoronary bypass graft; Z88.8 Allergy status to other drugs, medicaments and biological substances
CPT/HCPCS: 93458; C8929; 36415; 70450; 80048; 80053; 80061; 82550; 82805; 82962; 83735; 84443; 84484; 85007; 85027; 85347; 85520; 93005; 94250; 94620; 94640; 94660; 94760; 99152; 99153; 99406; C1769; C1771; C1887; C1892; G0269; J0360; J0583; J1644; J1815; J2001; J2250; J3010; J3490; J7030; J7512; J7613; J7626; Q0163; Q9967; Q9950